=== PATIENT | female | born 1985 | race Caucasian/White ===

== ENCOUNTER 2022-04-10 08:35 | Emergency (ER) | payer OTHER, SELFPAY ==
--- NOTE | 2022-04-10 08:40 | ED.SKABFB ---
HPI - Skin/Abscess/Foreign Bdy General Chief complaint: Upper Respiratory Infection Stated complaint: sore throat infection right big toe Time Seen by Provider: 04/10/22 08:40 Source: patient and RN notes reviewed History of Present Illness HPI narrative: The patient is a 36-year-old female who presents to urgent care with complaints of a possible infection to her right toe as well as a sore throat. Patient states that she wore a high heel shoes this past week that rubbed her toe open. Patient has been using peroxide, salt water and Neosporin on the toe. Also reports of a sore throat for 1 week. Patient has not taken anything [id number] for the sore throat. 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 Denies any known fevers, nausea or vomiting. No other acute complaints. No acute distress noted. Patient aware of the plan of care. Some parts of this dictation were generated by voice recognition software and may contain typographical and/or grammatical inaccuracies. Related Data Home Medications Medication Instructions Recorded Confirmed dextroamphetamine-amphetamine 10 10 mg PO BID 04/10/22 04/10/22 mg tablet Allergies Allergy/AdvReac Type Severity Reaction Status Date / Time No Known Allergies Allergy Verified 04/10/22 08:53 Review of Systems Review of Systems: CONSTITUTIONAL: Denies fever, chills, or sweats. EYES: Denies visual changes, redness, or discharge. ENT: Denies rhinorrhea, congestion, Otalgia. Reports a sore throat CARDIOVASCULAR: Denies chest pain, palpitations, or edema. RESPIRATORY: Denies cough or dyspnea. GASTROINTESTINAL: Denies abdominal pain, nausea, vomiting, or diarrhea. GENITOURINARY: Denies dysuria or hematuria. SKIN: reports of redness and pain around the right toe MUSCULOSKELETAL: Denies back pain, joint pain, or myalgia. NEUROLOGIC: Denies headache, numbness, or weakness. All other systems reviewed are negative, except as documented in HPI. [facility] Family History Family History (Updated 01/06/16 @ 23:21 by DOCTOR UNKNOWN) Mother Depression Patient's mother is in good health Hypertension Sibling Asthma Patient's sister is in good health Patient's brother is in good health Family history of development disorder Family history of attention deficit hyperactivity disorder (ADHD) Other Family history of malignant neoplasm of breast Social History Social History Smoking status: Never smoker Alcohol intake: current Comments At the time of my signature, I reviewed and agree with the nursing past medical, surgical, social, and family history. There is no relevant family history pertinent to the patient complaint. Exam Narrative: GENERAL: This is a well-nourished, well-developed patient, in no apparent distress. HEAD: normocephalic, atraumatic. EYES: PERRL. Sclera clear/white. Vision is grossly intact. EARS: External ears normal, auditory canals clear and without drainage, TMs normal without perforation. Hearing grossly intact. NOSE: External nose normal with no obvious nasal discharge, nares without redness, no rhinorrhea. THROAT: Mucous membranes moist, mild erythema noted to posterior oropharynx without exudate or ulceration. Absent tonsils. NECK: Neck supple, non-tender Mild right submandibular lymphadenopathy CARDIOVASCULAR: Regular rate and rhythm without murmurs, gallops, or rubs. RESPIRATORY: Clear to auscultation. Breath sounds equal bilaterally. No wheezes, rales, or rhonchi. SKIN: 1 x 1 cm none deep ulceration to the cuticle of the right great toe with mild surrounding erythema.warm, intact with no suspicious lesions or rash, good texture and turgor. NEURO: awake, alert, and oriented to person, place and time. There were no obvious focal neurologic abnormalities. EXTREMITIES: No clubbing, cyanosis, or edema. positive strong right pedal pulse with capillary refill less than 2 seconds. Course Course Level of Care: E
[2022-04-10 08:42] VITALS: BP 116/70; PULSE 84; RESP 14; TEMP 36.3; O2SAT 100
== END 2022-04-10 09:20 | disposition home or self-care (01) ==
PROVIDERS: Emergency Provider Nurse Practitioner Family; PCP Nurse Practitioner Family
DX: J02.0 Streptococcal pharyngitis (principal); S91.109A Unspecified open wound of unspecified toe(s) without damage to nail, initial encounter; X58.XXXA Exposure to other specified factors, initial encounter
CPT/HCPCS: 87880; 99213; G0463

== ENCOUNTER 2022-04-26 | Emergency (ER) | payer OTHER, SELFPAY ==
--- NOTE | ~2022-04-26 | CT_ITS ---
EXAMINATION: CT abdomen pelvis wo con DATE: 04/26/2022 00:36 INDICATION: Hematuria. Dysuria. TECHNIQUE: Computed tomography (CT) of the abdomen and pelvis was performed without intravenous contr ast. Automated exposure control and iterative reconstruction technique were employed. The dose-length product was 191.01 mGy-cm. COMPARISON: CT abdomen 06/23/2004 FINDINGS: The visualized portions of the lung bases are clear without pneumonia or pleural effusion. The heart size is normal. No pericardial effusion. The liver, gallbladder, spleen, pancreas, adrenal glands, and kidneys are normal. There is no urolithiasis. There are no dilated loops of bowel. The ap pendix is normal. There are no pathologically enlarged lymph nodes. There is no free intraperitoneal fluid. There is mild thoracic spondylosis. IMPRESSION: 1. No etiology for the patient's symptoms. Reviewed, dictated and finalized at location A. INE STRIPER
[2022-04-26 00:08] VITALS: BP 137/81; PULSE 89; RESP 20; TEMP 36.9; O2SAT 100
[2022-04-26 00:23] LABS: Appearance Urine Slightly Cloudy (Clear); Bilirubin Urine Negative (Negative); Blood Urine 3+ (Negative); Glucose Urine UA Negative (Negative); Ketones Urine Negative (Negative); Leukocyte Esterase Ur 2+ (Negative); Nitrate Urine Negative (Negative); Protein Urine Negative (Negative); Specific Grav Ur <= 1.005 (1.010-1.020); Urobilinogen Urine 0.2 mg/dL (0.2-1.0)
[2022-04-26] MEDS: KETOROLAC 30 MG/ML VIAL (*BKC) IM (00:23)
[2022-04-26 00:29] LABS: Add Urine Microscopic? YES; Color Urine Yellow (Yellow)
[2022-04-26 00:30] LABS: Bacteria Urine Trace /hpf; Squamous Epithelial Cell Urine Rare /hpf (Few); WBC Urine 16-20 /hpf (0-3)
--- NOTE | 2022-04-26 00:44 | ED.ABDPAIN ---
HPI - Abdominal Pain General Chief Complaint: Urogenital-Female Stated Complaint: UTI Time Seen by Provider: 04/26/22 00:04 Source: patient and RN notes reviewed Mode of arrival: ambulatory Limitations: no limitations History of Present Illness MD elicited complaint: abdominal pain Pertinent past history: past UTI Onset (ago): day(s) (2) Pain Consistency: constant Location: suprapubic Severity: moderate Pain scale (0-10): 6 Quality: cramping and aching Radiation: none Migration to: no migration Exacerbating factors: nothing Relieving factors: nothing Associated symptoms: dysuria and hematuria Related Data Patient : No Home Medications Medication Instructions Recorded Confirmed dextroamphetamine-amphetamine 10 10 mg PO BID 04/10/22 04/26/22 mg tablet Allergies Allergy/AdvReac Type Severity Reaction Status Date / Time No Known Allergies Allergy Verified 04/10/22 08:53 Review of Systems Review of Systems: All systems reviewed & are unremarkable except as noted in HPI and below Constitutional: Constitutional: Reports no additional constitutional complaints Eyes: Eyes: Reports no additional eye complaints ENT: Reports system reviewed and no additional complaints, except as documented Cardiovascular: Cardiovascular: Reports no additional cardiovascular complaints Respiratory: Respiratory: Reports no additional respiratory complaints Gastrointestinal: Gastrointestinal: Reports abdominal pain and Reports nausea Genitourinary: Genitourinary: Reports no additional female genitourinary complaints Musculoskeletal: Musculoskeletal: Reports no additional musculoskeletal complaints Integumentary/Breasts: Skin/Breast: Reports system reviewed and no additional complaints, except as docu Neurologic: Reports system reviewed and no additional complaints, except as documented Psychiatric: Psychiatric: Reports no additional psychiatric complaints Endocrine: Endocrine: Reports no additional endocrine complaints Hematologic/Lymphatic: Hematologic/Lymphatic: Reports no additional hematologic/lymphatic complaints Allergic/Immunologic: Allergic/Immunologic: Reports no additional allergic/immunologic complaints [facility] Past Medical History Medical History UTI (urinary tract infection) Family History Family History Mother Depression Patient's mother is in good health Hypertension Sibling Asthma Patient's sister is in good health Patient's brother is in good health Family history of development disorder Family history of attention deficit hyperactivity disorder (ADHD) Other Family history of malignant neoplasm of breast Social History Social History Smoking status: Never smoker Alcohol intake: current Exam Const: General: healthy appearing, no acute distress and well nourished Nutritional Appearance: well nourished Orientation/consciousness: patient oriented x3 Limitations: no limitations HENMT: Head: normal to inspection Ears: external ears normal, TM's normal bilaterally and EAC's normal Face/Nose/Sinus: Normal external nose present, Normal nares present, normal facial exam and sinuses nontender Face and sinus: normal facial exam and sinuses nontender Mouth: Yes Normal oral and palatal mucosa present and Yes moist mucous membranes Teeth and gingiva: dentition normal Throat: posterior oropharynx normal Eyes: Conjunctivae: conjunctivae normal Pupils: Equal, round and reactive pupils present EOM: EOMs intact bilaterally Neck: Neck: normal visual inspection, no lymphadenopathy and no meningeal signs Chest: Chest palpation & inspection: normal inspection of the chest Resp: Effort & Inspection: normal respiratory effort Auscultation: clear to auscultation bilaterally Cardio: Rate: regular rate Rhythm: regular
[2022-04-26] MEDS: cefTRIAXone 1 GM, LIDOCAINE HCL 1% LOCAL INJ 2.1 ML IM (00:58)
[2022-04-26 01:13] VITALS: BP 118/85; PULSE 76; RESP 18; TEMP 37; O2SAT 100
== END 2022-04-26 01:24 | disposition home or self-care (01) ==
PROVIDERS: Emergency Provider Emergency Medicine; PCP Nurse Practitioner Family
DX: N39.0 Urinary tract infection, site not specified (principal)
CPT/HCPCS: 74176; 81001; 96372; 99284; J0696; J1885

== ENCOUNTER 2022-05-02 18:22 | Emergency (ER) | payer OTHER, SELFPAY ==
[2022-05-02 18:49] VITALS: BP 108/66; PULSE 71; RESP 20; TEMP 36.3; O2SAT 100
--- NOTE | 2022-05-02 20:25 | ED.SKABFB ---
HPI - Skin/Abscess/Foreign Bdy General Chief complaint: Skin/Abscess/Foreign Body Stated complaint: Mouth Sore Time Seen by Provider: 05/02/22 20:25 Source: patient, RN notes reviewed and old records reviewed Mode of arrival: ambulatory Limitations: no limitations History of Present Illness HPI narrative: 36 year old female who presents to [facility] care with complaints of swelling under the right side of her tongue and also under her right jaw line which is tender and firm feeling. Patient reports that she has discomfort when she moves her tongue. Patient reports that she was treated 2 weeks ago for strep throat and then 2 days later also had infected toe and on the she received Bactrim for UTI.Patient reports no shortness of breath or any difficulty with her swallowing. Patient reports these symptoms started yesterday. MD complaint: other (swollen firm gland under right jaw line) Onset (ago): day(s) (day 2 of symptoms) Severity scale (1-10): 5 Treatments prior to arrival: none Related Data Home Medications Medication Instructions Recorded Confirmed dextroamphetamine-amphetamine 10 10 mg PO BID 04/10/22 05/02/22 mg tablet Allergies Allergy/AdvReac Type Severity Reaction Status Date / Time No Known Allergies Allergy Verified 05/02/22 19:43 Review of Systems Review of Systems: CONSTITUTIONAL: Denies fever, chills, or sweats. EYES: Denies visual changes, redness, or discharge. ENT: Denies rhinorrhea, congestion, sore throat, or otalgia..positive for raised area under right tongue and firm area under right jaw line CARDIOVASCULAR: Denies chest pain, palpitations, or edema. RESPIRATORY: Denies cough or dyspnea. GASTROINTESTINAL: Denies abdominal pain, nausea, vomiting, or diarrhea. GENITOURINARY: Denies dysuria or hematuria. SKIN: Denies rash or itching. MUSCULOSKELETAL: Denies back pain, joint pain, or myalgia. NEUROLOGIC: Reports some headache, no numbness, or weakness. PSYCHIATRIC: Denies anxiety or depression. All systems reviewed & are unremarkable except as noted in HPI and below PMFSH Past Medical History Medical History ADHD (attention deficit hyperactivity disorder) Asthma GERD (gastroesophageal reflux disease) UTI (urinary tract infection) Family History Family History Mother Depression Patient's mother is in good health Hypertension Sibling Asthma Patient's sister is in good health Patient's brother is in good health Family history of development disorder Family history of attention deficit hyperactivity disorder (ADHD) Other Family history of malignant neoplasm of breast Social History Social History Smoking status: Never smoker Alcohol intake: current Comments At time of signature, agree with nursing past medical, surgical, social and family history. There is no relevant family history pertinent to the presenting complaint Exam Narrative: GENERAL: Well-appearing, well-nourished, and in no acute distress. HEAD: Normocephalic, atraumatic. EYES: PERRLA and EOMI. ENT: Nares clear, no rhinorrhea or epistaxis. Mucous membranes moist.TM's normal throat pink with no swelling noted, raised area under right tongue with firm tender under right jawline. NECK: Supple. firm area under right jawline CHEST: Clear to auscultation. No respiratory distress.SAO2 100% on room air HEART: Regular rate and rhythm. No murmur heard. Normal peripheral pulses. ABDOMEN: Soft, nontender, nondistended, normal active bowel sounds. EXTREMITIES: Normal range of motion. No edema. SKIN: Warm, dry, no rash.key NEURO: No focal deficits. Alert and oriented x3. Course Course Emergency Course: Patient is aware of diagnosis, understands and agrees to treatment plan.? Anticipatory guidance given.? Patient agrees to follow-up as directed and is aware o
== END 2022-05-02 20:45 | disposition home or self-care (01) ==
PROVIDERS: Emergency Provider Registered Nurse; PCP Nurse Practitioner Family
DX: K11.20 Sialoadenitis, unspecified (principal)
CPT/HCPCS: 99213; G0463

== ENCOUNTER 2022-05-28 17:09 | Emergency (ER) | payer OTHER, SELFPAY ==
[2022-05-28 17:21] VITALS: BP 110/74; PULSE 89; RESP 16; TEMP 36.6; O2SAT 100
--- NOTE | 2022-05-28 17:28 | ED.URI ---
HPI - URI/Sore Throat General Chief Complaint: Upper Respiratory Infection Stated Complaint: sore throat, fever Time Seen by Provider: 05/28/22 18:10 Source: patient and RN notes reviewed Mode of arrival: ambulatory Limitations: no limitations History of Present Illness HPI Narrative: 36-year-old female presents concern for sore throat, fatigue, fever, earache. Reports symptoms started yesterday. Reports exposure to strep throat. Her children have similar symptoms. MD elicited complaint: fever and sore throat Related Data Home Medications Medication Instructions Recorded Confirmed dextroamphetamine-amphetamine 10 10 mg PO DAILY 05/28/22 05/28/22 mg tablet Allergies Allergy/AdvReac Type Severity Reaction Status Date / Time No Known Allergies Allergy Verified 05/28/22 17:48 Review of Systems Review of Systems: CONSTITUTIONAL: Reports malaise, fatigue, fever. EYES: Denies visual changes, redness, or discharge. ENT: Denies rhinorrhea, congestion, sinus pain. Reports otitis and sore throat. CARDIOVASCULAR: Denies chest pain, palpitations, or edema. RESPIRATORY: Denies cough. Denies dyspnea. GASTROINTESTINAL: Denies abdominal pain, nausea, vomiting, diarrhea SKIN: Denies rash or itching. MUSCULOSKELETAL: Denies myalgia. NEUROLOGIC: Denies headache. All systems reviewed & are unremarkable except as noted in HPI and below PMFSH Past Medical History Medical History ADHD (attention deficit hyperactivity disorder) Asthma GERD (gastroesophageal reflux disease) UTI (urinary tract infection) Family History Family History Mother Depression Patient's mother is in good health Hypertension Sibling Asthma Patient's sister is in good health Patient's brother is in good health Family history of development disorder Family history of attention deficit hyperactivity disorder (ADHD) Other Family history of malignant neoplasm of breast Social History Social History Smoking status: Never smoker Alcohol intake: current Comments At time of signature, agree with nursing past medical, surgical, social and family history. There is no relevant family history pertinent to the presenting complaint Exam Narrative: GENERAL: Well-appearing, well-nourished, and in no acute distress. HEAD: Normocephalic EYES: PERRLA, conjunctivae clear ENT: Nares clear, clear discharge. Mucous membranes moist. TM pearly rosario with dull light reflex bilaterally; no tragal tenderness. Oropharynx erythematous without lesions. Tonsils not enlarged and with exudate, no drooling, no hoarseness, no trismus, uvula midline. NECK: Supple. No lymphadenopathy CHEST: Clear to auscultation, breath sounds equal. No wheezing, rhonchi, rales, or stridor. No respiratory distress, speaks in full sentences. HEART: Regular rate and rhythm. No murmur heard. SKIN: Warm, dry, no rash. NEURO: Alert and oriented x3. PSYCH: Normal mood and affect Course Course Emergency Course: Patient is aware of diagnosis, understands and agrees to treatment plan. Anticipatory guidance given. Patient agrees to follow-up as directed and is aware of reasons to seek care at the emergency department. Portions of this record may have been created with voice recognition software Level of Care: Express Care Visit Vital Signs Vital signs: Vital Signs Temperature 97.8 F 05/28/22 17:21 Pulse Rate 89 05/28/22 17:21 Respiratory Rate 16 05/28/22 17:21 Blood Pressure 110/74 05/28/22 17:21 Pulse Oximetry 100 05/28/22 17:21 Temperature 97.8 F 05/28/22 17:21 Pulse Rate 89 05/28/22 17:21 Respiratory Rate 16 05/28/22 17:21 Blood Pressure 110/74 05/28/22 17:21 Pulse Oximetry 100 05/28/22 17:21 Reviewed. MDM - URI/Sore Throat MDM Narrative Medical decision making narrative
== END 2022-05-28 18:21 | disposition home or self-care (01) ==
PROVIDERS: Emergency Provider Nurse Practitioner
DX: J02.9 Acute pharyngitis, unspecified (principal); Z20.822 Contact with and (suspected) exposure to COVID-19; J45.909 Unspecified asthma, uncomplicated; K21.9 Gastro-esophageal reflux disease without esophagitis; F90.9 Attention-deficit hyperactivity disorder, unspecified type
CPT/HCPCS: 87081; 87426; 87804; 99213; C9803; G0463

== ENCOUNTER 2023-03-13 13:55 | Emergency (ER) | payer OTHER, SELFPAY ==
[2023-03-13 13:59] VITALS: BP 146/93; PULSE 73; RESP 18; TEMP 36.1; O2SAT 100
--- NOTE | 2023-03-13 14:17 | ED.FEMALEGU ---
HPI - Female Genitourinary General Chief complaint: Urogenital-Female Stated complaint: Urinary Problems Source: patient and RN notes reviewed History of Present Illness HPI Narrative: 37-year-old female presents to urgent care with complaints dysuria x3 days. Patient reports urinary frequency, urgency, and burning. Patient states she was having any symptoms 3 weeks ago with resolved after taking Cystex. Denies any fevers, chills, abdominal pain, back pain, flank pain or vomiting. Related Data Allergies Allergy/AdvReac Type Severity Reaction Status Date / Time No Known Allergies Allergy Verified 03/13/23 14:04 Review of Systems Review of Systems: CONSTITUTIONAL: Denies fever, chills, or sweats. EYES: Denies visual changes, redness, or discharge. ENT: Denies otalgia and sore throat CARDIOVASCULAR: Denies chest pain, palpitations, or edema. RESPIRATORY: Denies cough or dyspnea. GASTROINTESTINAL: Denies abdominal pain, nausea, vomiting, or diarrhea. GENITOURINARY: Reports dysuria and hematuria. SKIN: Denies rash or itching. MUSCULOSKELETAL: Denies back pain, joint pain, or myalgia. NEUROLOGIC: Denies headache, numbness, or weakness. Pertinent positives per HPI. PMFSH Past Medical History Medical History ADHD (attention deficit hyperactivity disorder) Asthma GERD (gastroesophageal reflux disease) UTI (urinary tract infection) Family History Family History Mother Depression Patient's mother is in good health Hypertension Sibling Asthma Patient's sister is in good health Patient's brother is in good health Family history of development disorder Family history of attention deficit hyperactivity disorder (ADHD) Other Family history of malignant neoplasm of breast Social History Social History Smoking status: Never smoker Alcohol intake: current Comments At the time of my signature, I reviewed and agree with the nursing past medical, surgical, social, and family history. There is no relevant family history pertinent to the patient complaint. Exam Narrative: GENERAL: This is a well-nourished, well-developed patient, in no apparent distress. HEAD: normocephalic, atraumatic. EYES: Sclera clear/white. Vision is grossly intact. EARS: External ears normal, auditory canals clear and without drainage, TMs normal without perforation. Hearing grossly intact. NOSE: External nose normal with no obvious nasal discharge, nares without redness, no rhinorrhea. THROAT: Mucous membranes moist, posterior pharynx clear. NECK: Neck supple, non-tender without lymphadenopathy, masses or thyromegaly. CARDIOVASCULAR: Regular rate and rhythm without murmurs, gallops, or rubs. RESPIRATORY: Clear to auscultation. Breath sounds equal bilaterally. No wheezes, rales, or rhonchi. GASTROINTESTINAL: Abdomen soft, non-tender, nondistended. Bowel sounds are active. No hepato-splenomegaly, or palpable masses. No guarding. SKIN: warm, intact with no suspicious lesions or rash, good texture and turgor. NEURO: awake, alert, and oriented to person, place and time. There were no obvious focal neurologic abnormalities. EXTREMITIES: No clubbing, cyanosis, or edema. No joint tenderness, effusion, or edema noted. BACK: Nontender without deformity or crepitus. No flank tenderness. Course Course Level of Care: Express Care Visit Vital Signs Vital signs: Vital Signs Temperature 96.9 F L 03/13/23 13:59 Pulse Rate 73 03/13/23 13:59 Respiratory Rate 18 03/13/23 13:59 Blood Pressure 146/93 H 03/13/23 13:59 Pulse Oximetry 100 03/13/23 13:59 Oxygen Delivery Room Air 03/13/23 13:59 Temperature 96.9 F L 03/13/23 13:59 Pulse Rate 73 03/13/23 13:59 Respiratory Rate 18 03/13/23 13:59 Blood Pressure 146/93 H 03/13/23 13:59 Pulse Oximetry 100 1
== END 2023-03-13 14:20 | disposition home or self-care (01) ==
PROVIDERS: Emergency Provider Nurse Practitioner Family
DX: N39.0 Urinary tract infection, site not specified (principal)
CPT/HCPCS: 81003; 87077; 87086; 87088; 99213; G0463

== ENCOUNTER 2023-05-01 11:16 | Emergency (ER) | payer OTHER, SELFPAY ==
[2023-05-01 11:30] VITALS: BP 117/73; PULSE 80; RESP 18; TEMP 36.7; O2SAT 100
--- NOTE | 2023-05-01 11:42 | ED.FEMALEGU ---
HPI - Female Genitourinary General Chief complaint: Urogenital-Female Stated complaint: poss uti Time Seen by Provider: 05/01/23 11:17 Source: patient Mode of arrival: ambulatory Limitations: no limitations History of Present Illness HPI Narrative: Beatrice is a 37-year-old female patient presenting to the clinic today with complaints of a possible UTI. She reports she has pain, frequency, urgency, and bilateral flank pain and lower abdominal discomfort x2 weeks. Free has been taking azo for her symptoms. No fever or chills. Related Data Allergies Allergy/AdvReac Type Severity Reaction Status Date / Time No Known Allergies Allergy Verified 05/01/23 11:24 Review of Systems Review of Systems: Pertinent positives per HPI. Patient denies any fever, chills, rash, headache, visual changes, dizziness, cough, shortness of breath, chest pain, palpitations, nausea, vomiting, diarrhea, constipation, abdominal pain. PMFSH Past Medical History Medical History ADHD (attention deficit hyperactivity disorder) Asthma GERD (gastroesophageal reflux disease) UTI (urinary tract infection) Family History Family History Mother Depression Patient's mother is in good health Hypertension Sibling Asthma Patient's sister is in good health Patient's brother is in good health Family history of development disorder Family history of attention deficit hyperactivity disorder (ADHD) Other Family history of malignant neoplasm of breast Social History Social History Smoking status: Never smoker Alcohol intake: current Comments At the time of my signature, I reviewed and agree with the nursing past medical, surgical, social, and family history. There is no relevant family history pertinent to the patient complaint. Exam Narrative: General: Well-developed, well nourished, in no apparent distress. Head: Normocephalic, atraumatic. Cardio: Regular rate and rhythm, s1 and s2 normal, no murmur appreciated. Resp: Clear to auscultation bilaterally, no rhonchi, rales, wheezing or rubs. Abdomen: Soft, pliable, bowel sounds present in all quadrants, mild tender to palpation over the urinary bladder, no organomegly, no CVAT tenderness. Course Course Emergency Course: Portions of this record may have been created with voice recognition software. Level of Care: Express Care Visit Vital Signs Vital signs: Vital Signs Temperature 36.7 C 05/01/23 11:30 Pulse Rate 80 05/01/23 11:30 Respiratory Rate 18 05/01/23 11:30 Blood Pressure 117/73 05/01/23 11:30 Pulse Oximetry 100 05/01/23 11:30 Temperature 36.7 C 05/01/23 11:30 Pulse Rate 80 05/01/23 11:30 Respiratory Rate 18 05/01/23 11:30 Blood Pressure 117/73 05/01/23 11:30 Pulse Oximetry 100 05/01/23 11:30 Vital signs reviewed MDM - Female Genitourinary MDM Narrative Medical decision making narrative: At the time of visit patient is resting comfortably on the exam table. Patient is nontoxic appearing. UA dip is skewed due to azo. We will send urine for culture. Due to patient's symptoms I will go ahead and empirically treat using Augmentin. Last culture was positive for group B strep. Supportive measures were discussed with the patient she voiced understanding the discharge instructions and agrees to treatment plan. Return precautions were reviewed Differential Diagnosis Differential diagnosis: Likely urinary tract infection and cystitis Lab Data Labs: Urine Glucose Trace Reference Range: Negative Urine Bilirubin 1+ Reference Range: Negative Urine Ketone Negative
== END 2023-05-01 11:50 | disposition home or self-care (01) ==
PROVIDERS: Emergency Provider Nurse Practitioner Family; PCP Nurse Practitioner Family
DX: N30.01 Acute cystitis with hematuria (principal)
CPT/HCPCS: 81003; 87077; 87086; 87186; 99213; G0463

== ENCOUNTER 2024-09-21 11:29 | Outpatient (CLI) | payer BC, SELFPAY ==
[2024-09-21 11:58] LABS: Basophils Absolute Auto 0.03 K/mm3 (0.00-0.10); Basophils Percent Auto 0.5 % (0.0-1.0); Eosinophils Absolute Auto 0.13 K/mm3 (0.02-0.50); Hematocrit 41.9 % (35.0-49.0); Hemoglobin 14.2 g/dL (12.0-15.0); Immature Granulocyte Absolute 0.02 K/mm3 (0.00-0.00); Immature Granulocyte Percent A 0.3 % (0.0-0.0); Lymphocytes Absolute Auto 2.26 K/mm3 (1.10-4.50); Lymphocytes Percent Auto 35.1 % (18.0-42.0); Mean Corpuscular HGB Conc 33.9 g/dL (32-36); Mean Corpuscular Hemoglobin 29.8 pg (27.0-31.0); Mean Platelet Volume 11.5 fl (9.2-11.8); Monocytes Absolute Auto 0.43 K/mm3 (0.10-0.90); Monocytes Percent Auto 6.7 % (2.0-11.0); Neutrophils Absolute Auto 3.57 K/mm3 (1.70-7.20); Neutrophils Percent Auto 55.4 % (50.0-70.0); Platelet Count Result 241 K/mm3 (150-420); Red Blood Count 4.76 M/mm3 (4.20-5.40); Red Cell Distribution Width 12.5 % (11.6-14.4); White Blood Count 6.4 K/mm3 (4.8-10.8)
[2024-09-21 13:02] LABS: Alanine Aminotransferase 27 U/L (14-59); Albumin Level 4.3 g/dL (3.4-5.0); Alkaline Phosphatase 85 U/L (46-116); Anion Gap 9 mmol/L (4-12); Aspartate Amino Transferase 19 U/L (15-37); Bilirubin,Total 0.8 mg/dL (0.00-1.00); Blood Urea Nitrogen 14 mg/dL (7-18); Calcium 9.2 mg/dL (8.5-10.1); Carbon Dioxide 31 mmol/L (21-32); Chloride 106 mmol/L (98-108); Estimated Glomerular Filt Rate > 60; Free T4 Free Thyroxine 0.95 ng/dL (0.76-1.46); Glucose 59 mg/dL (70-99); Iron 138 ug/dL (50-170); Magnesium 1.9 mg/dL (1.8-2.4); Osmolality Calculated 300 mOsm/kg (285-295); Percent Iron Saturation 51 % (12-57); Potassium 3.9 mmol/L (3.5-5.1); Sodium 146 mmol/L (136-145); Thyroid Stimulating Hormone 1.06 uIU/mL (0.36-3.74); Total Protein 7.3 g/dL (6.4-8.2); Vitamin B12 557 pg/mL (193-986)
[2024-09-21 13:04] LABS: Erythrocyte Sedimentation Rate 8 mm/hr (0-15)
--- OUTSIDE RECORDS SUMMARY | 2024-09-21 13:07 | XMS_ITS | Clinical Summary ---
Author Organization [facility] Address [address] [place] [address] Care Team Providers Care Pediatric Assistant Name Role Phone Ruth Murillo MD Primary Care Provider [phone] Source Comments [facility],non-owned Affiliates and Associated Physician Practices is amultiple site organization consisting of ambulatory clinics and hospital sitesin [place], [place] and [place]. This disclosure is being madepursuant to the Care Everywhere program and may not contain all information available regarding this patient. Last updated 18.[facility] Allergies No known active allergies Medications * Be aware that medications may not be up to date on this document. Alwaysverify current medications with the patient. sertraline (ZOLOFT) 50 MG tabletIndication s:Cerebral venous sinus thrombosis (HCC) Take 50 mg by mouth once daily. Active levETIRAcetam (KEPPRA) 500 MG tablet Take 1 Tab by mouth 2 times daily. 60 Tab 5 10/25/2011 Active warfarin (COUMADIN) 5 MG tablet Take 2 Tabs by mouth every evening. Take for total dose of 11 mg every evening. 60 Tab 5 11/01/2011 Active warfarin (COUMADIN) 2 MG tabletIndication s:Cerebral venous sinus thrombosis (HCC) Take 0.5 Tabs by mouth every evening. 30 Tab 5 11/01/2011 Active Ciprofloxacin (CIPRO PO) Take by mouth. Active Active Problems Problem Noted Date Diagnosed Date 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/14/2011 Numbness 09/12/2011 Supervision of high-risk 07/25/2011 Overview (09/04/2011): di-di twins by IVF A+/I/-/-, HIV NR GCT 119 Height: 5' 7 (170.2 cm) Weight: 204 lb 9.6 oz (92.806 kg) Body mass index is 32.04 kg/(m^2). Shoe Size: di-di twins 07/25/2011 Overview (07/25/2011): by IVF labor 07/25/2011 Overview (07/25/2011): Has had contractions since about 24 weeks. Currently on 20mg procardia every 6 hours while awake. Followed by [facility] with serial CL's - last on 07/23, 20-33mm Also bi-weekly FFN's - last neg on 07/16 GERD (gastroesophageal reflux disease) 2 Overview (07/25/2011): 40mg protonix BID Subdural hematoma, acute Medication overuse headache Pre-eclampsia in third trimester Seizure disorder, focal sensory Immunizations Immunization Administration Dates Next Due PNEUMOCOCCAL PPSV23 09/08/2011 TDAP (7yrs+) 09/08/2011 Family History Medical History Relation Name Comments Myasthenia Gravis Brother 2 Multiple Births Mother Ruth Wilcox Labor Mother Ruth Wilcox Twins Mother Ruth Wilcox Relation Name Status Comments Brother 1 Alive Brother 2 Father unknown Other Mother Ruth Wilcox Alive Sister Alive Social History Tobacco Use Types Packs/Day Years Used Date Smoking Tobacco: Never Tobacco Cessation:Counseling Given: Yes Alcohol Use Standard Drinks/Week Comments No 0 (1 standard drink = 0.6 oz pur e alcohol) Comments Unknown Sex and Gender Information Value Date Recorded Sex Assigned at Not on file Legal Sex Female 1:21 PM MANAGER FOOD SAFETY Gender Identity Not on file Sexual Orientation Not on file Last Filed Vital Signs Vital Sign Reading Time Taken Comments Blood Pressure 98/63 01/07/2012 12:13 PM CDT Pulse 64 01/07/2012 12:13 PM CDT Temperature 36.8 C (98.2 F) 01/07/2012 12:13 PM CDT Respiratory Rate 18 01/07/2012 12:1 3 PM CDT Oxygen Saturation 98% 09/17/2011 11: 13 AM CDT Inhaled Oxygen Concentration - - Weight 66.6 kg (146 lb 12.8 oz) 012 12:13 PM CDT Height 170.2 cm (5' 7 ) 01/07/2012 12:1 3 PM CDT Body Mass Index 22.99 01/07/2012 12:13 PM CDT Plan of Treatment Health Maintenance Due Date Last Done Comments PAP SMEAR 1985 HIV SCREENING 2001 HEPATITIS C SCREENING 10/08/2004 HEPATITIS B VACCINE (1 of 3 - 19+ 3-dose series) 2005 DTAP/TDAP/TD VACCINES (2 - T d or Tdap) 09/07/2021 09/08/2011 COVID-19 VACCINE (1 - 2023-2 5 season) 2024 DEPRESSION SCREENING 06/10/2024 INFLUENZA VACCINE (Season Ended) 2025 ZOSTER VACCINE (1 of 2) 2036 PNEUMOCOCCAL VACCINE Aged Out 09/08/2011 No long er eligible based on patient's age to complete this topic HIB VACCINE Aged Out No longer eligi ble based on patient's age to complete this topic HPV VACCINE Aged Out No longer eligi ble based on patient's age to complete this topic MENINGOCOCCAL (Group B) VACC INE SHARED DECISION-MAKING Aged Out No longer eligibl e based on patient's age to complete this topic MENINGOCOCCAL GROUPS A/C/Y/W VACCINE Aged Out No longer eligible b ased on patient's age to complete this topic Insurance [facility] Advance Directives * FULL RESUSCITATION (Latest Code Status on File) Date Activated Date Inactivated Comments 09/03/2011 2:37 PM 09/10/2011 12:48 AM Care Teams Pediatric Assistant Relationship Specialty Start Date End Date Ruth Murillo MD [address] [address] PCP - General 09/12/11
--- OUTSIDE RECORDS SUMMARY | 2024-09-21 13:07 | XMS_ITS | Clinical Summary ---
Author Organization [facility] Address [address] [place] [address] Care Team Providers Care Surgeon Partner Name Role Phone Kasey Hernandez NP Primary Care Provider [phone] Amy Arias NP Unavailable [phone] CatarinoFabby vang MD Unavailable [phone] Allergies No known active allergies Medications methylphenidate HCl (RITALIN) 10 mg tablet Take 1 tablet (10 mg total) by mouth every morning 08/31/2022 Active metroNIDAZOLE (FLAGYL) 500 mg tablet Take 1 tablet (500 mg total) by mouth 2 (two) times a day 09/03/2022 Active Active Problems Problem Noted Date Diagnosed Date Seizure disorder, focal sensory 09/11/2022 Subdural hematoma, acute 09/11/2022 Family history of breast cancer 09/11/2022 Encounter for screening mammogram for breast can cer 09/11/2022 Breast cancer screening, high risk patient 09/11 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/14/2011 GERD (gastroesophageal reflux disease) 2 Overview (09/11/2022): 40mg protonix BID Surgical History Surgery Date Site/Laterality Comments HYSTERECTOMY VASCULAR SURGERY ABDOMINAL SURGERY STAPEDECTOMY Left had surgey done 4 times Medical History Medical History Date Comments Stroke (HCC) Asthma Family History * Patient is adopted Medical History Relation Name Comments Breast cancer Father's Sister Ovarian cancer Father's Sister Thyroid cancer Maternal Grandmother Breast cancer Mother's Sister Breast cancer Paternal Grandmother Relation Name Status Comments Father's Sister Alive Maternal Grandmother Mother's Sister Paternal Grandmother Alive Social History Tobacco Use Types Packs/Day Years Used Date Smoking Tobacco: Never Smokeless Tobacco: Never Alcohol Use Standard Drinks/Week Comments Yes 0 (1 standard drink = 0.6 oz pur e alcohol) Personal Safety Answer Date Recorded Getting School Help Needed Not on file 07/30 Comments No Sex and Gender Information Value Date Recorded Sex Assigned at Not on file 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 Gender Identity Female 10/10/2021 10:25 PM CDT Sexual Orientation Choose not to disclose 2021 10:25 PM CDT Obstetrics History Para Term AB IAB SAB Ectopic Multiple Livin g Live Births 2 2 2 Date Outcome GA Total Labor Labor/2nd/3rd Weight Sex Type Anes PTL Tamar A1 A5 Name Clin Term Term Last Filed Vital Signs Vital Sign Reading Time Taken Comments Blood Pressure 116/77 09/11/2022 9:01 AM CDT Pulse 78 09/11/2022 9:01 AM CDT Temperature 36.5 C (97.7 F) 09/11/2022 9:01 AM CDT Respiratory Rate 20 09/11/2022 9:01 AM CDT Oxygen Saturation 99% 09/11/2022 9:01 AM CDT Inhaled Oxygen Concentration - - Weight 78.5 kg (173 lb) 09/11/2022 9:01 AM CDT Height 172.7 cm (5' 8 ) 09/11/2022 9:01 AM CDT Body Mass Index 26.3 09/11/2022 9:01 AM CDT Plan of Treatment Health Maintenance Due Date Last Done Comments Depression Screening 1986 Hepatitis C Screening 1986 Varicella Vaccines (1 of 2 - 13+ 2-dose series) 10/14/1999 Hepatitis B Screening 2004 Regular Well Visit/Exam 18-64 2004 DTaP/Tdap/Td Vaccine (2 - Td or Tdap) 09/07/2021 09/08/2011 Influenza Vaccine (Season Ended) 2025 04/13/2020, 05/07/2017 Pneumococcal vaccine <65 Aged Out 09/08/2011 No longer eligible based on patient's age to complete this topic HPV Vaccines Aged Out No longer eligi ble based on patient's age to complete this topic Insurance Care Teams Surgeon Partner Relationship Specialty Start Date End Date Kasey Hernandez, ELIZABETH PCP - General 12/03/17 Aym Arias NP [address] [place] [address] Nurse Practitioner Nurse Practitioner 09/04/22 Fabby Toribio MD [address] [facility] MED[facility] ON[facility]OGY, [facility] [place] [address] Surgeon Breast Surgery 09/04/22
--- OUTSIDE RECORDS SUMMARY | 2024-09-21 13:07 | XMS_ITS | Clinical Summary ---
Author Organization [facility] Address [address] [place] [address] Phone Care Team Providers Care Tabulating Supervisor Name Role Phone ANGEL DO MD Unavailable Unavailable Reason for Visit and Chief Complaint The Chief Complaint is: Pt states she has been exposed to covid. C/o chills, fever, chest congestion, SOB, cough, fatigue, headache, body aches, sore throat, and runny nose x 5 days Plan of Treatment - Return to the clinic if condition worsens or new symptoms arise - Last Documented On 05/25/2020 1:08PM ; [facility] - Patient will call for appointment as needed - Last Documented On 05/25/2020 1:08PM ; [facility] CDC handout was given about COVID testing. Informed to quarantine for 10 days from symptom onset. Must have improvement of symptoms and be without fever for 24 hours without medications prior to being released from quarantine. If symptoms worsen or patient develops difficulty breathing go to Emergency Room. Informed the Health Department would contact her in time but if she could to notify her contacts that she was around 48 hours prior to symptom onset until now that she is positive it would be helpful in reducing transmission. - Last Documented On 05/25/2020 1:08PM ; [facility] Assessments Includes: Assessments from this encounter Findings - [Z20.828 - Contact with and (suspected) exposure to other viral communicable diseases] Exposure to a viral disease - Last Documented On 05/25/2020 1:08PM ; [facility] - [U07.1 - COVID-19, virus identified] COVID-19 infection - Last Documented On 05/25/2020 1:08PM ; [facility] - [R05 - Cough] Cough - Last Documented On 05/25/2020 1:08PM ; [facility] Medical Equipment - Implanted Devices Includes: Current Devices No Medical Equipment Recorded Medications Administered Includes: Administered Medications from this encounter No Administered Medications Recorded Vital Signs Includes: Vital Signs from this encounter Vital Name 05/25/2020 12:53P Pulse Rate-Sitting (bpm) 88 Temp-Oral (F) 98.5 Oxygen Saturation (%) 99 Last Documented: On 05/25/2020 12:55P M ; [facility] Results Includes: Results discussed during this encounter Rapid COVID Test [facility] Ordered by YANCY SOTO PMHNP- MEDICAL DIRECTOR/HEAD TEAM PHYSICIAN- on 05/25/2020 Collected: Reported: 05/25/2020 12:57 Last Documented On 0 12:57PM ; [facility] Reviewed on 05/25/2020; All test results are final unless otherwise noted. Rapid COVId positive A (Abnormal) Last Documented On 0 12:57PM ; [facility] Int. QC Acceptable yes N (Normal) Last Documented On 0 12:57PM ; [facility] Lot # and Exp. Date [id number] 08/30/20 N (Normal) Last Documented On 0 12:57PM ; [facility] History of Present Illness Includes: History of Present Illness from this encounter MANDY KENNEDY is a 34 year old female. - Feeling tired - Fever - Chills - Duration of symptoms for 5 days - Previously well - Not feeling poorly (malaise) - Headache associated with head congestion - No sinus pain - No sinus pressure - No swollen glands in the neck - No itching of the eyes - No discharge from the eyes - Nasal discharge - Sore throat - No earache - The ears do not feel pressured - The ears do not feel full - No discharge from the ears - No postnasal drip - No nasal passage blockage (stuffiness) - No sneezing - No hoarseness - No itchy throat - No chest pain or discomfort - No palpitations - Feeling congested in the chest - Dyspnea - Cough - No wheezing - Normal appetite - No nausea - No vomiting - No abdominal pain - No diarrhea - No oliguria - Muscle aches - No bilateral anosmia - No taste decreased - No rash 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 5 days ago mild sore throat then 2 days ago other symptoms started Did not take temp but felt feverish Social History No Social History Recorded - Smoking Status Unknown Procedures and Surgical History Includes: Procedures from this encounter Procedures Code Diagnosis Performing Provider Service L ocation Service Date patient to call if symptoms worsen or not improved in 5-7 days to update patient's status Last Documented On 0 12:57PM ; [facility] Patient verbalizes understanding Last Documented On 0 12:57PM ; [facility] Clinical summary provided to patient Last Documented On 0 12:57PM ; [facility] Medical History Includes: Medical History addressed during this encounter No Medical History Recorded Family History Includes: Family History addressed during this encounter No Family History Recorded Review of Systems Includes: Review of Systems from this encounter No Review of Systems Recorded Mental Status Includes: Mental Status from this encounter Description Oriented to time, place, and person Functional Status Includes: Functional Status from this encounter No Functional Status Recorded Physical Exam Includes: Physical Exam from this encounter Encounters Encounter Provider Location Date Check-In Time Check-Out Time Diagnosis SICK VISIT YANCY SOTO PMHNP-BC MEDICAL DIRECTOR/HEAD TEAM PHYSICIAN-BC [facility] 0 12:45PM 1:05PM Exposure To Contagious Viral Disease,Wallace virus Covid-19 Infection,[place] Cough Insurance Includes: Active Insurance Policies Plan Name Member ID Group # Subscriber Relationship Effect dorene Dates - [facility] [id number] MAG KENNEDY Self Clinical Notes Includes: Clinical Notes from this encounter No Clinical Notes Recorded
--- OUTSIDE RECORDS SUMMARY | 2024-09-21 13:07 | XMS_ITS | Encounter Summary ---
Author Organization [facility] Address [address] [place] [address] Phone Care Team Providers Care Electronic Publications Specialist Name Role Phone Kasey Hernandez NP Primary Care Provider [phone] Amy Arias NP Unavailable [phone] Fabby Toribio MD Unavailable [phone] Encounter Details Date Type Department Care Team (Latest Contact Info) Description 09/11/2022 Orders Only [facility] Scanning, Provider Social History Tobacco Use Types Packs/Day Years Used Date Smoking Tobacco: Never Smokeless Tobacco: Never Alcohol Use Standard Drinks/Week Comments Yes 0 (1 standard drink = 0.6 oz pur e alcohol) Comments No Sex and Gender Information Value Date Recorded Sex Assigned at Not on file 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 Gender Identity Female 10/10/2021 10:25 PM CDT Sexual Orientation Choose not to disclose 2021 10:25 PM CDT documented as of this encounter Plan of Treatment Not on file documented as of this encounter Procedures Procedure Name Priority Date/Time Associated Diagnosis Comments SCAN - LABS 09/11/2022 documented in this encounter Results * SCAN - LABS (09/11/2022) us Provider Scanning Final Result documented in this encounter Visit Diagnoses Not on filedocumented in this encounter Care Teams Electronic Publications Specialist Relationship Specialty Start Date End Date Kasey Hernandez NP PCP - General 12/03/17 Amy Arias, COSMETICS PRESSER [address] [place] [id number] Nurse Practitioner Nurse Practitioner 09/04/22 YoungFabby vang MD [address] [facility] MEDICAL ON[facility]OGY, [facility] [address] [place] [address] Surgeon Breast Surgery 09/04/22 documented as of this encounter
--- OUTSIDE RECORDS SUMMARY | 2024-09-21 13:07 | XMS_ITS ---
Author Organization [facility] Address [address] [place] [address] Phone Care Team Providers Care Electromechanical Engineer Name Role Phone HI REYES, ANGEL Unavailable Unavailable Plan of Treatment Findings Encounter Date Ordered patient will call fo r appointment as needed SICK VISIT with YANCY SOTO PMHNP-BC PHYSICAL DIRECTOR-BC 05/25/2020 Last Documented On 0 1:08PM ; [facility] Ordered return to the clinic if condition worsens or new symptoms arise SICK VISIT with YANCY SOTO PMHNP-BC PHYSICAL DIRECTOR-BC 05/25/2020 Last Documented On 0 1:08PM ; [facility] Assessments Includes: Assessments for all patient encounters Findings Encounter Date Cough SICK VISIT with YANCY ROJAS PMHNP-BC PHYSICAL DIRECTOR-BC 05/25/2020 Last Documented On 0 1:08PM ; [facility] COVID-19 infection SICK VISIT with YANCY MOJICA PMHNP-BC PHYSICAL DIRECTOR-BC 05/25/2020 Last Documented On 0 1:08PM ; [facility] Exposure to a viral disease SICK VISIT w ith YANCY SOTO PMHNP-BC PHYSICAL DIRECTOR-BC 05/25/2020 Last Documented On 0 1:08PM ; [facility] Medical Equipment - Implanted Devices Includes: Current and historical Devices No Medical Equipment Recorded Medications Administered Includes: Administered Medications in patient's chart No Administered Medications Recorded Results Includes: Results from 09/22/2023 through 09/21/2024 No Results Recorded For Specified Dates History of Present Illness History of Present Illness not supported for this document type No History of Present Illness Recorded Social History No Social History Recorded - Smoking Status Unknown Medical History Includes: Medical History in patient's chart No Medical History Recorded Family History Includes: Family History in patient's chart No Family History Recorded Review of Systems Review of Systems not supported for this document type No Review of Systems Recorded Mental Status Description Oriented to time, place, and person Functional Status No Functional Status Recorded Physical Exam Physical Exam not supported for this document type No Physical Exam Recorded Insurance Includes: Active Insurance Policies Plan Name Member ID Group # Subscriber Relationship Effect dorene Dates 1 - [facility] [id number] MAG Martínez Clinical Notes Includes: Signed Clinical Notes starting from 06/29/2022 No Clinical Notes Recorded
--- OUTSIDE RECORDS SUMMARY | 2024-09-21 13:07 | XMS_ITS | Referral Summary ---
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 Gender Identity Female 10/10/2021 10:25 PM CDT Sexual Orientation Choose not to disclose 2021 10:25 PM CDT Last Filed Vital Signs Vital Sign Reading [...] 09/11/2022 9:01 AM CDT Plan of Treatment Not on file Insurance MEDICAID [facility] Care Teams Driver Manager Relationship Specialty Start Date End Date Kasey Hernandez SENIOR SAFETY MANAGEMENT CONSULTANT PCP - General 12/03/17 Amy Arias NP [address] [place] [address] [address] Nurse Practitioner Nurse Practitioner 09/04/22 Fabby Toribio MD [address] [facility] [address] IM MEDICAL ONCOLOGY, [facility] [address] [place] [address] Surgeon Breast Surgery 09/04/22
--- OUTSIDE RECORDS SUMMARY | 2024-09-21 13:08 | XMS_ITS ---
Care Plan - [facility] Created on: September 21, 2024 MAG KENNEDY : 1985 Sex: Female Author Organization [facility] Address [address] [place] [address] Phone Care Team Providers Care Slasher Operator Name Role Phone HI REYES, ANGEL Suresh Unavailable
[2024-09-21 13:29] LABS: Rheumatoid Factor Screen Negative (Negative)
[2024-09-22 17:03] LABS: Vitamin D 25 Hydroxy 31 ng/mL (30-100)
[2024-09-23 06:18] LABS: Total Triiodothyronine (T3) 101 ng/dL (76-181)
[2024-09-23 13:49] LABS: Lyme Disease Ab (IgM), Blot NEGATIVE (NEGATIVE); Lyme Disease Ab(IgG), Blot NEGATIVE (NEGATIVE)
[2024-09-24 15:42] LABS: Insulin Level Total 7.7 uIU/mL
== END 2024-09-21 11:30 | disposition home or self-care (01) ==
LOC: CHSLAB 11:30
PROVIDERS: PCP Nurse Practitioner Family; Visit Provider Nurse Practitioner Family
DX: R53.82 Chronic fatigue, unspecified (principal); M25.50 Pain in unspecified joint; I10 Essential (primary) hypertension; E03.9 Hypothyroidism, unspecified; Z79.899 Other long term (current) drug therapy; E53.8 Deficiency of other specified B group vitamins; E16.2 Hypoglycemia, unspecified
CPT/HCPCS: 36415; 80053; 82306; 82607; 83525; 83527; 83540; 83550; 83735; 84439; 84443; 84480; 85025; 85652; 86038; 86039; 86430; 86617

== ENCOUNTER 2024-09-23 17:46 | Emergency (ER) | payer BC, SELFPAY ==
[2024-09-23 17:47] VITALS: BP 122/95; PULSE 80; RESP 18; TEMP 36.7; O2SAT 100
--- OUTSIDE RECORDS SUMMARY | 2024-09-23 17:48 | XMS_ITS ---
Author Organization [facility] Address [address] [place] [address] Phone Care Team Providers Care Soft Sugar Cutter Name Role Phone HI REYES, ANGEL Unavailable Unavailable Plan of Treatment Findings Encounter Date Ordered patient will call fo r appointment as needed SICK VISIT with YANCY SOTO PMHNP-BC VENDING MACHINE REPAIRER-BC 05/25/2020 Last Documented On 0 1:08PM ; [facility] Ordered return to the clinic if condition worsens or new symptoms arise SICK VISIT with YANCY SOTO PMHNP-BC VENDING MACHINE REPAIRER-BC 05/25/2020 Last Documented On 0 1:08PM ; [facility] Assessments Includes: Assessments for all patient encounters Findings Encounter Date Cough SICK VISIT with YANCY ROJAS PMHNP-BC VENDING MACHINE REPAIRER-BC 05/25/2020 Last Documented On 0 1:08PM ; [facility] COVID-19 infection SICK VISIT with YANCY MOJICA PMHNP-BC VENDING MACHINE REPAIRER-BC 05/25/2020 Last Documented On 0 1:08PM ; [facility] Exposure to a viral disease SICK VISIT w ith YANCY SOTO PMHNP-BC VENDING MACHINE REPAIRER-BC 05/25/2020 Last Documented On 0 1:08PM ; [facility] Medical Equipment - Implanted Devices Includes: Current and historical Devices No Medical Equipment Recorded Medications Administered Includes: Administered Medications in patient's chart No Administered Medications Recorded Results Includes: Results from 09/24/2023 through 09/23/2024 No Results Recorded For Specified Dates History [...] Subscriber Relationship Effect dorene Dates 1 - [facility] [id number] MAG Martínez Clinical Notes Includes: Signed Clinical Notes starting from 06/29/2022 No Clinical Notes Recorded
--- OUTSIDE RECORDS SUMMARY | 2024-09-23 17:48 | XMS_ITS | Encounter Summary ---
Author Organization [facility] Address [address] [place] [address] Phone Care Team Providers Care Casino Dealer Name Role Phone Kasey Hernandez NP Primary Care Provider [phone] Amy Arias NP Unavailable [phone] Fabby Toribio MD Unavailable [phone] Encounter Details Date Type Department Care Team [...] on file Legal Sex Female 8:33 AM FIXTURE MAKER Gender Identity Female 10/10/2021 10:25 PM CDT [...] on filedocumented in this encounter Care Teams Casino Dealer Relationship Specialty Start Date End Date Kasey Hernandez NP PCP - General 12/03/17 Amy Arias, PRIMER CHARGING TOOL SETTER [address] [place] [address] Nurse Practitioner Nurse Practitioner 09/04/22 MowrystownFabby vang MD [address] [facility] MEDICAL ON[facility]OGY, [facility] [address] [place] [address] Surgeon Breast Surgery 09/04/22 documented as of this encounter
--- OUTSIDE RECORDS SUMMARY | 2024-09-23 17:48 | XMS_ITS | Clinical Summary ---
Author Organization [facility] [employer] Address [address] [place] [address] Care Team Providers Care Overlock Sewing Machine Operator Name Role Phone Ruth Murillo MD Primary Care Provider [phone] Source Comments [facility],non-owned Affiliates and Associated Physician Practices is amultiple site organization consisting of ambulatory clinics and hospital sitesin [place], [place], [place] and [place]. This disclosure is being madepursuant to the Care Everywhere program and may not contain all information available regarding this patient. 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 Advance Directives * FULL RESUSCITATION (Latest Code Status on File) Date Activated Date Inactivated Comments 09/03/2011 2:37 PM 09/10/2011 12:48 AM Care Teams Overlock Sewing Machine Operator Relationship Specialty Start Date End Date Ruth Murillo MD [address] [address] PCP - General 09/12/11
--- OUTSIDE RECORDS SUMMARY | 2024-09-23 17:48 | XMS_ITS | Referral Summary ---
Author Organization [facility] Address [address] [place] [address] Care Team Providers Care Director Trust Name Role Phone Kasey Hernandez NP Primary Care Provider [phone] Amy Arias NP Unavailable [phone] Fabby Toribio MD Unavailable [phone] Allergies No known active allergies Medications methylphenidate [...] on file Legal Sex Female 8:33 AM EXPANSION ENVELOPE MAKER HAND Gender Identity Female 10/10/2021 10:25 PM CDT [...] of Treatment Not on file Insurance MEDICAID [facility] Care Teams Director Trust Relationship Specialty Start Date End Date Kasey Hernandez MAINSPRING TORQUE TESTER PCP - General 12/03/17 Amy Arias NP [address] [place] [address] [address] Nurse Practitioner Nurse Practitioner 09/04/22 Fabby Toribio MD [address] [facility] [address] DIV IM MEDICAL ONCOLOGY, [facility] [address] [place] [address] Surgeon Breast Surgery 09/04/22
--- OUTSIDE RECORDS SUMMARY | 2024-09-23 17:48 | XMS_ITS | Clinical Summary ---
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
--- OUTSIDE RECORDS SUMMARY | 2024-09-23 17:49 | XMS_ITS | Clinical Summary ---
Author Organization [facility] Address [address] [place] [address] Phone Care Team Providers Care Sales Clerk Name Role Phone ANGEL DO MD Unavailable [...] - Last Documented On 05/25/2020 1:08PM ; [facility] - Patient will call for appointment as needed - Last Documented On 05/25/2020 1:08PM ; [facility] CDC handout was given about COVID testing. [...] - Last Documented On 05/25/2020 1:08PM ; [facility] Assessments Includes: Assessments from this encounter Findings - [Z20.828 - Contact with and (suspected) exposure to other viral communicable diseases] Exposure to a viral disease - Last Documented On 05/25/2020 1:08PM ; [facility] - [U07.1 - COVID-19, virus identified] COVID-19 infection - Last Documented On 05/25/2020 1:08PM ; [facility] - [R05 - Cough] Cough - Last Documented On 05/25/2020 1:08PM ; [facility] Medical Equipment - Implanted Devices Includes: Current Devices No Medical Equipment Recorded Medications Administered Includes: Administered Medications from this encounter No Administered Medications Recorded Vital Signs Includes: Vital Signs from this encounter Vital Name 05/25/2020 12:53P Pulse Rate-Sitting (bpm) 88 Temp-Oral (F) 98.5 Oxygen Saturation (%) 99 Last Documented: On 05/25/2020 12:55P M ; [facility] Results Includes: Results discussed during this encounter Rapid COVID Test [facility] Ordered by YANCY SOTO PMHNP- EMBROIDERY SUPERVISOR- on 05/25/2020 Collected: Reported: 05/25/2020 12:57 Last Documented On 0 12:57PM ; [facility] Reviewed on 05/25/2020; All test results are final unless otherwise noted. Rapid COVId positive A (Abnormal) Last Documented On 0 12:57PM ; [facility] Int. QC Acceptable yes N (Normal) Last Documented On 0 12:57PM ; [facility] Lot # and Exp. Date [id number] 08/30/20 N (Normal) Last Documented On 0 12:57PM ; [facility] History of Present Illness Includes: History of [...] status Last Documented On 0 12:57PM ; [facility] Patient verbalizes understanding Last Documented On 0 12:57PM ; [facility] Clinical summary provided to patient Last Documented On 0 12:57PM ; [facility] Medical History Includes: Medical History [...] Time Diagnosis SICK VISIT YANCY SOTO PMHNP-BC EMBROIDERY SUPERVISOR-BC [facility] 0 12:45PM 1:05PM Exposure To Contagious Viral Disease,Wallace virus Covid-19 Infection,Acut e Cough Insurance Includes: Active Insurance Policies Plan Name Member ID Group # Subscriber Relationship Effect dorene Dates - [facility] [id number] MAG KENNEDY Self Clinical Notes Includes: Clinical Notes from this encounter No Clinical Notes Recorded
--- OUTSIDE RECORDS SUMMARY | 2024-09-23 17:49 | XMS_ITS ---
Care Plan - [facility] Created on: September 23, 2024 MAG KNENEDY : 1985 Sex: Female Author Organization [facility] Address [address] [place] [address] Phone Care Team Providers Care Profile Shaper Operator Name Role Phone HI REYES, ANGEL Suresh Unavailable
--- NOTE | 2024-09-23 18:00 | ECG_ITS ---
Test Date: 2024-09-23 18:10:15 Measurements Intervals Rosanky Rate: 68 P: 45 ND: 203 QRS: 40 QRSD: 88 T: 61 QT: 411 QTc: 440 Interpretive Statements SINUS RHYTHM BASELINE ARTIFACT- V4-V6 NORMAL ECG No previous ECG available for comparison Electronically Signed On 09-24-2024 09:15:33 CDT by Good Harris D.O.
--- NOTE | 2024-09-23 18:14 | ED_ITS ---
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 She had a workup which revealed hypoglycemia with blood sugar of 59. Patient does not have any history of alcoholism, organ dysfunction or any other medication which could cause hyperglycemia. The patient has modified her diet and is currently eating high- protein diet and avoiding concentrated sweets. In spite of dietary modifications the patient continues to have episodes of hypoglycemia. She has been prescribed doxycycline by primary care physician for Lyme disease. she has been sent from her primary care physician's office to get an EKG to rule out heart block/ arrhythmias. She presents to the ED with -- Vertigo. The patient denies any lightheadedness or dizziness. No ear complaints. Patient is not orthostatic -- ongoing fatigue for the past few weeks. no fever or chills. No dysuria or hematuria. No nausea/vomiting /abdominal pain / diarrhea. Onset (ago): week(s) Severity: moderate Pain Consistency: intermittent Relieving factors: none Exacerbating factors: eating Associated symptoms: denies other symptoms Treatments prior to arrival: none Related Data Home Medications ?Medication ?Instructions ?Recorded ?Confirmed ?Last Taken ?Type dextroamphetamine-amphetamine 10 10 mg PO BID 09/21/24 Unknown History mg tablet (Adderall) Allergies Allergy/AdvReac Type Severity Reaction Status Date / Time No Known Allergies Allergy Verified 09/23/24 18:13 Review of Systems 2 Review of Systems: All systems reviewed & are unremarkable except as noted in HPI and below PMFSH Past Medical History Medical History ADHD (attention deficit hyperactivity disorder) GERD (gastroesophageal reflux disease) Asthma UTI (urinary tract infection) Family History Family History Mother Depression Patient's mother is in good health Hypertension Sibling Asthma Patient's sister is in good health Patient's brother is in good health Family history of development disorder Family history of attention deficit hyperactivity disorder (ADHD) Other Family history of malignant neoplasm of breast Social History Social History Smoking status: Never smoker Alcohol intake: current Alcohol use details: Socially Substance use: current Substance use type: marijuana Last use: nightly Do You Feel Safe in your Home?: Yes Lack of Transportation: No Lack of Food: Never True Current Housing: I Have Housing Concerned About Future Housing: No Difficulty Paying Gas/Electric Bills: No Difficulty Paying for Meds: No Currently Unemployed: No Education: Associate Degree Difficulty w/ Childcare or Family Care: No Living arrangements: with family Exam 2 Narrative: Vitals are stable. Patient is not orthostatic. Const: General: cooperative, healthy appearing and comfortable O rientation/consciousness: oriented to person, oriented to place and oriented to time HENMT: Head: normal to inspection, normocephalic and atraumatic Ears: h earing grossly normal bilaterally, external ears normal and TM's normal bilaterally Face/Nose/Sinus: Normal external nose present and Normal nares present Face and sinus: normal facial exam Mouth: Yes Normal oral and palatal mucosa present, Yes lip normal and Yes tongue normal Teeth and gingiva: dentition normal Throat: posterior oropharynx normal Eyes: General: appearance normal, both eyes and all related structures V isual Dumont: normal visual dumont by confrontation Alignment and Position: a lignment normal and position normal Periorbital: periorbital findings normal Eyelids: eyelids normal Conjunctivae: conjunctivae normal Sclera: s clerae normal Cornea: corneas normal Pupils: Equal, round and reactive pupils present EOM: EOMs intact bilaterally Neck: Neck: normal visual inspection and full ROM Chest: Chest palpation & inspection: normal inspection of the chest Resp: Effort & Inspection: normal respiratory effort Auscultation: clear to auscultation bilaterally Cardio: Palpation: normal PMI Rate: regular rate Rhythm: regular rhythm Heart sounds: S1 normal heart sound present and S2 normal heart sound present GI: Inspection: normal to inspection Other: No tenderness/ rigidity /rebound. Back/Spine/Pelvis: Back: no CVA tenderness Skin: General skin exam: normal color and no rashes or lesions noted Neuro: General: oriented to person, oriented to place, oriented to time, patient oriented x3, gait normal, tone normal and moves all extremities Extrem: General: normal to inspection, full ROM and capillary refill normal Psych: Appearance: grossly normal Mental Status: mental status grossly normal Course Course Emergency Course: Vertigo-- will order Antivert intermittent hypoglycemia-- will check cortisol level, insulin and C-peptide levels. will order glucagon to be used when her blood sugar is less than 60. severe fatigue-- Workup has been negative. The patient is due to get doxycycline for presumed Lyme disease. Patient does not have any evidence of meningitis, bells palsy. No history of ECM. NV interval is noted to be 203 suggestive of first-degree heart block. Vital Signs Vital signs: Vital Signs Temperature 36.7 C 09/23/24 17:47 Pulse Rate 80 09/23/24 17:47 Respiratory Rate 18 09/23/24 17:47 Blood Pressure 122/95 H 09/23/24 17:47 Pulse Oximetry 100 09/23/24 17:47 Oxygen Delivery Room Air 09/23/24 17:47 Temperature 36.7 C 09/23/24 17:47 Pulse Rate 85 09/23/24 18:33 Respiratory Rate 18 09/23/24 17:47 Blood Pressure 129/106 H 09/23/24 18:33 Pulse Oximetry 100 09/23/24 17:47 Oxygen Delivery Room Air 09/23/24 17:47 Medical Decision Making [facility] Narrative Medical decision making narrative: severe fatigue Hypoglycemia Differential Diagnosis Differential Diagnosis: hypothyroidism, connective tissue disorder Medical Records Medical records reviewed: Yes I reviewed the external patient's medical records. Vital Signs Vital Signs: Vital Signs Temperature 36.7 C 09/23/24 17:47 Pulse Rate 80 09/23/24 17:47 Respiratory Rate 18 09/23/24 17:47 Blood Pressure 122/95 H 09/23/24 17:47 Pulse Oximetry 100 09/23/24 17:47 Oxygen Delivery Room Air 09/23/24 17:47 Temperature 36.7 C 09/23/24 17:47 Pulse Rate 85 09/23/24 18:33 Respiratory Rate 18 09/23/24 17:47 Blood Pressure 129/106 H 09/23/24 18:33 Pulse Oximetry 100 09/23/24 17:47 Oxygen Delivery Room Air 09/23/24 17:47 Lab Data 09/23/24 18:47 Labs: Lab Results 04/16/25 Range/Units 18:47 Sodium Pending Potassium Pending Chloride Pending Carbon Dioxide Pending Anion Gap Pending BUN Pending Creatinine Pending Estim Creat Clear Calc Pending Estimated GFR Pending Glucose Pending Total Insulin Pending C-Peptide Pending Calculated Osmolality Pending Calcium Pending Random Cortisol Pending ECG Data EKG #1: ECG completion date: 09/23/24 ECG completion time: 18:10 Interpretation: Normal sinus rhythm normal axis. NV interval is 203 Suggestive of a first- degree heart block. No ST elevation Discharge Plan Discharge Clinical Impression: Chronic fatigue, Reactive hypoglycemia, Vertigo Patient Disposition: Home Condition: Stable Instructions: Antibiotic Form, Non-diabetic Hypoglycemia (ED), Fatigue (ED) Patient Language: Macanese Prescriptions: New meclizine [Antivert] 25 mg tablet,chewable 25 mg PO TID PRN (Reason: motion sickness) Qty: 20 0RF glucagon HCl [Glucagon (HCl) Emergency Kit] 1 mg recon soln 1 mg subcut Q20M PRN (Reason: hypoglycemia) Qty: 1 0RF Rx Instructions: until target blood sugar attained No Action dextroamphetamine-amphetamine [Adderall] 10 mg tablet 10 mg PO BID Rx Instructions: administer doses at least 4-6 hours apart doxycycline monohydrate 100 mg capsule 100 mg PO BID 28 Days Qty: 56 0RF (DME) FreeStyle Anel 3 Sensor Device See Rx Instructions .Route Qty: 1 0RF Rx Instructions: As directed Follow-up/Referrals: Prem Faria DO [Primary Care Provider] - Time of Disposition: 18:57
--- OUTSIDE RECORDS SUMMARY | 2024-09-23 18:25 | XMS_ITS | Referral Summary ---
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
--- OUTSIDE RECORDS SUMMARY | 2024-09-23 18:25 | XMS_ITS ---
Care Plan - [facility] Created on: September 23, 2024 MAG KENNEDY : 1985 Sex: Female Author Organization [facility] Address [address] [place] [address] Phone Care Team Providers Care Marble Cleaner Name Role Phone HI REYES, ANGEL Suresh Unavailable
--- OUTSIDE RECORDS SUMMARY | 2024-09-23 18:25 | XMS_ITS | Clinical Summary ---
Author Organization [facility] Address [address] [place] [address] Phone Care Team Providers Care Director Of Managed Care Name Role Phone ANGEL DO MD Unavailable [...] - Last Documented On 05/25/2020 1:08PM ; [facility] - Patient will call for appointment as needed - Last Documented On 05/25/2020 1:08PM ; [facility] CDC handout was given about COVID [...] - Last Documented On 05/25/2020 1:08PM ; [facility] Assessments Includes: Assessments from this encounter Findings - [Z20.828 - Contact with and (suspected) exposure to other viral communicable diseases] Exposure to a viral disease - Last Documented On 05/25/2020 1:08PM ; [facility] - [U07.1 - COVID-19, virus identified] COVID-19 infection - Last Documented On 05/25/2020 1:08PM ; [facility] - [R05 - Cough] Cough - Last Documented On 05/25/2020 1:08PM ; [facility] Medical Equipment - Implanted Devices Includes: Current Devices No Medical Equipment Recorded Medications Administered Includes: Administered Medications from this encounter No Administered Medications Recorded Vital Signs Includes: Vital Signs from this encounter Vital Name 05/25/2020 12:53P Pulse Rate-Sitting (bpm) 88 Temp-Oral (F) 98.5 Oxygen Saturation (%) 99 Last Documented: On 05/25/2020 12:55P M ; [facility] Results Includes: Results discussed during this encounter Rapid COVID Test [facility] Ordered by YANCY SOTO PMHNP- MEDICAL TRANSCRIPTION RADIOLOGY- on 05/25/2020 Collected: Reported: 05/25/2020 12:57 Last Documented On 0 12:57PM ; [facility] Reviewed on 05/25/2020; All test results are final unless otherwise noted. Rapid COVId positive A (Abnormal) Last Documented On 0 12:57PM ; [facility] Int. QC Acceptable yes N (Normal) Last Documented On 0 12:57PM ; [facility] Lot # and Exp. Date [id number] 08/30/20 N (Normal) Last Documented On 0 12:57PM ; [facility] History of Present Illness Includes: History [...] status Last Documented On 0 12:57PM ; [facility] Patient verbalizes understanding Last Documented On 0 12:57PM ; [facility] Clinical summary provided to patient Last Documented On 0 12:57PM ; [facility] Medical History Includes: Medical History [...] Diagnosis SICK VISIT YANCY SOTO PMHNP-BC MEDICAL TRANSCRIPTION RADIOLOGY-BC [facility] 0 12:45PM 1:05PM Exposure To Contagious Viral Disease,Wallace virus Covid-19 Infection,Acut e Cough Insurance Includes: Active Insurance Policies Plan Name Member ID Group # Subscriber Relationship Effect dorene Dates - [facility] [id number] MAG KENNEDY Self Clinical Notes Includes: Clinical Notes from this encounter No Clinical Notes Recorded
--- OUTSIDE RECORDS SUMMARY | 2024-09-23 18:25 | XMS_ITS | Clinical Summary ---
Author Organization [facility] [employer] [facility] Address [address] [address] Care Team Providers Care Maintenance Mechanic Elevators Name Role Phone Ruth Murillo MD Primary Care Provider [phone] Source Comments [facility],non-owned Affiliates and Associated Physician Practices is amultiple site organization consisting of ambulatory clinics and hospital sitesin [place], [place], [place] and [place]. This disclosure is being madepursuant to the Care Everywhere program and may not contain all information available regarding this patient. 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
--- OUTSIDE RECORDS SUMMARY | 2024-09-23 18:25 | XMS_ITS ---
Author Organization [facility] Address [address] [place] [address] Phone Care Team Providers Care Environmental Safety Specialist Name Role Phone HI REYES, ANGEL Unavailable Unavailable Plan of Treatment Findings Encounter Date Ordered patient will call fo r appointment as needed SICK VISIT with YANCY SOTO PMHNP-BC LOCATOR-BC 05/25/2020 Last Documented On 0 1:08PM ; [facility] Ordered return to the clinic if condition worsens or new symptoms arise SICK VISIT with YANCY SOTO PMHNP-BC LOCATOR-BC 05/25/2020 Last Documented On 0 1:08PM ; [facility] Assessments Includes: Assessments for all patient encounters Findings Encounter Date Cough SICK VISIT with YANCY ROJAS PMHNP-BC LOCATOR-BC 05/25/2020 Last Documented On 0 1:08PM ; [facility] COVID-19 infection SICK VISIT with YANCY MOJICA PMHNP-BC LOCATOR-BC 05/25/2020 Last Documented On 0 1:08PM ; [facility] Exposure to a viral disease SICK VISIT w ith YANCY SOTO PMHNP-BC LOCATOR-BC 05/25/2020 Last Documented On 0 1:08PM ; [facility] Medical Equipment - Implanted Devices Includes: [...] Subscriber Relationship Effect dorene Dates 1 - [facility] [id number] MAG Martínez Clinical Notes Includes: Signed Clinical Notes starting from 06/29/2022 No Clinical Notes Recorded
--- OUTSIDE RECORDS SUMMARY | 2024-09-23 18:25 | XMS_ITS | Encounter Summary ---
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
--- OUTSIDE RECORDS SUMMARY | 2024-09-23 18:25 | XMS_ITS | Clinical Summary ---
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
[2024-09-23 18:33] VITALS: BP 119/89; BP 129/106; PULSE 71; PULSE 85
[2024-09-23 19:00] LABS: Anion Gap 9 mmol/L (4-12); Blood Urea Nitrogen 16 mg/dL (7-18); Calcium 9.3 mg/dL (8.5-10.1); Carbon Dioxide 28 mmol/L (21-32); Chloride 103 mmol/L (98-108); Estimated CRCL calculation 76 ml/min; Estimated Glomerular Filt Rate > 60; Glucose 100 mg/dL (70-99); Osmolality Calculated 291 mOsm/kg (285-295); Potassium 3.9 mmol/L (3.5-5.1); Sodium 140 mmol/L (136-145)
[2024-09-23 19:05] VITALS: BP 116/87; PULSE 71; RESP 18; TEMP 36.6; O2SAT 99
--- NOTE | 2024-09-23 19:09 | PC.NURSE ---
On 09/23/24, the student, [tiffani lopez ], provided care and completed [facility] documentation on this patient. I have reviewed the student's documentation and agree with the findings.
[2024-09-25 13:58] LABS: Insulin Level Total 17.6 uIU/mL
[2024-09-25 16:18] LABS: C-Peptide 3.72 ng/mL (0.80-3.85); Cortisol Random 19.5 mcg/dL
== END 2024-09-23 19:09 | disposition home or self-care (01) ==
PROVIDERS: Emergency Provider Internal Medicine Critical Care Medicine; PCP Family Medicine
DX: R53.83 Other fatigue (principal); E16.1 Other hypoglycemia; R42 Dizziness and giddiness
CPT/HCPCS: 36415; 80048; 82533; 83525; 84681; 93005; 99283

== ENCOUNTER 2024-10-10 07:01 | Outpatient (CLI) | payer BC, SELFPAY ==
--- NOTE | ~2024-10-10 | MR_ITS ---
EXAMINATION: MR brain/brain stem wo con DATE: 10/10/2024 07:37 INDICATION: Headache. Diplopia. Dizziness TECHNIQUE: Magnetic resonance imaging (MRI) of the brain and brainstem was performed without intraven ous contrast. Sequences included sagittal and axial T1-weighted SE, axial diffusion-weighted FS SE, a xial T2*-weighted GRE, axial T2-weighted FLAIR, and axial T2-weighted FSE. Apparent diffusion coeffic ient (ADC) maps were created. COMPARISON: None. FINDINGS: There are no areas of restricted diffusion to suggest acute infarction. No intracranial hemorrhage or abnormal intracranial mass lesion. There are no intraparenchymal signal abnormalities seen on the ot her pulse sequences. The ventricles are symmetric and normal in size. There are no abnormal extra-axi al fluid collections. Flow voids are seen in the cerebral arteries on the T2-weighted sequences consi stent with their expected patency. Visualized orbits and soft tissues are unremarkable. IMPRESSION: 1. Normal brain MR Reviewed, dictated and finalized at location A. IMPRESSION: 1. Normal brain MR
[2024-10-10 07:57] LABS: Hemoglobin A1C 4.9 % (<5.7)
[2024-10-10 08:18] LABS: Cholesterol 152 mg/dL (0-200); HDL Direct 53 mg/dL (40-60); LDL Cholesterol Calculated 73 mg/dL (<130); Triglycerides 132 mg/dL (0-150)
--- OUTSIDE RECORDS SUMMARY | 2024-10-10 15:49 | XMS_ITS | Clinical Summary ---
Author Organization [facility] Address [address] [place] [address] Care Team Providers Care Home Housekeeper Name Role Phone Kasey Hernandez NP Primary Care Provider [phone] Amy Arias NP Unavailable [phone] CatarinoFabby vang MD Unavailable [phone] Allergies No known active allergies Medications methylphenidate [...] disease) 2 Overview (09/11/2022): 40mg protonix BID Encounters Date Type Department Care Team Description 09/24/2024 Telephone [facility] Pulmonology [address] 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
--- OUTSIDE RECORDS SUMMARY | 2024-10-10 15:49 | XMS_ITS | Encounter Summary ---
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
--- OUTSIDE RECORDS SUMMARY | 2024-10-10 15:49 | XMS_ITS | Referral Summary ---
Author Organization [facility] Address 1 [place] [address] Care Team Providers Care Contact Lens Polisher Name Role Phone Kasey Hernandez NP Primary Care Provider [phone] Amy Arias NP Unavailable [phone] Fabby Toribio MD Unavailable [phone] Encounters Date Type Department Care Team Description 09/24/2024 Telephone [facility] Medical Group Pulmonology [address] 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 Gender Identity Female 10/10/2021 10:25 PM [...] Plan of Treatment Not on file Insurance [id number] [place] [address] MEDICAID [facility] Member Subscriber Plan / Payer (Ef fective 2022-Present) Name:Kaylee Terrazas Relation to Subscriber:Self Name:Kaylee Terrazas Payer ID:[id number] (NAIC) Group ID:Not on file Type:MEDICAID RISK OTHER Address: ATTN: CLAIMS DEPT [address] [facility] [place] [phone] Care Teams Contact Lens Polisher Relationship Specialty Start Date End Date Kasey Hernandez NP PCP - General 12/03/17 Amy Arias NP [address] [place] [address] Nurse Practitioner Nurse Practitioner 09/04/22 CatarinoFabby vang MD [address] [facility] [address] DIV IM MEDICAL ONCOLOGY, [facility] [place] [address] Surgeon Breast Surgery 09/04/22
--- OUTSIDE RECORDS SUMMARY | 2024-10-10 15:49 | XMS_ITS | Clinical Summary ---
Author Organization [facility] [employer] Address [address] [place] [address] Care Team Providers Care Hospice Liaison Name Role Phone Ruth Murillo MD Primary Care Provider [phone] Source Comments [facility],non-owned Affiliates and Associated Physician Practices is amultiple site organization consisting of ambulatory clinics and hospital sitesin [place], [place], [place] and [place]. This disclosure is being madepursuant to the Care Everywhere program and may not contain all information available regarding this patient. 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
== END 2024-10-10 07:02 | disposition home or self-care (01) ==
PROVIDERS: PCP Nurse Practitioner Family; Visit Provider Nurse Practitioner Family
DX: Z00.00 Encounter for general adult medical examination without abnormal findings (principal); E16.2 Hypoglycemia, unspecified; R51.9 Headache, unspecified; R42 Dizziness and giddiness; Z86.718 Personal history of other venous thrombosis and embolism
CPT/HCPCS: 36415; 70551; 80061; 83036

== ENCOUNTER 2025-01-30 09:39 | Outpatient (CLI) | payer BC, SELFPAY ==
[2025-01-30 10:08] LABS: Hematocrit 41.1 % (35.0-49.0); Hemoglobin 13.6 g/dL (12.0-15.0); Immature Granulocyte Percent A 0.1 % (0.0-0.0); Lymphocytes Absolute Auto 2.81 K/mm3 (1.10-4.50); Mean Corpuscular HGB Conc 33.1 g/dL (32-36); Mean Corpuscular Hemoglobin 29.4 pg (27.0-31.0); Mean Corpuscular Volume 88.8 fL (78.0-102.0); Nucleated Red Blood Cells Absolute Auto 0.00 K/mm3 (0.00-0.00); Nucleated Red Blood Cells Perc 0.0 % (0-0.0); Platelet Count Result 227 K/mm3 (150-420); Red Blood Count 4.63 M/mm3 (4.20-5.40); White Blood Count 8.0 K/mm3 (4.8-10.8)
[2025-01-30 10:40] LABS: Alanine Aminotransferase 21 U/L (6-35); Albumin Level 4.6 g/dL (3.5-5.1); Alkaline Phosphatase 60 U/L (38-126); Anion Gap 6 mmol/L (4-12); Aspartate Amino Transferase 26 U/L (14-36); Bilirubin,Total 0.6 mg/dL (0.2-1.3); Blood Urea Nitrogen 16 mg/dL (7-17); CRP < 0.5 mg/dL (<1.0); Calcium 9.8 mg/dL (8.4-10.2); Carbon Dioxide 30 mmol/L (22-30); Chloride 103 mmol/L (98-107); Estimated Glomerular Filt Rate > 60; Glucose 105 mg/dL (65-110); Osmolality Calculated 289 mOsm/kg (285-295); Potassium 4.1 mmol/L (3.4-5.0); Sodium 139 mmol/L (137-145); Total Protein 6.8 g/dL (6.3-8.2)
[2025-01-30 11:00] LABS: HIV 1 P24 AG Negative (Negative); HIV 1/2 AB Negative (Negative)
[2025-01-30 11:09] LABS: Thyroid Stimulating Hormone Reflex 2.280 uIU/mL (0.465-4.68)
[2025-01-30 11:13] LABS: Ferritin 140.00 ng/mL (6.24-137)
[2025-01-30 11:44] LABS: Vitamin B12 > 1000.0 pg/mL (239-931)
[2025-02-02 16:07] LABS: ANA by IFA Rfx Titer/Pattern Negative (.)
== END 2025-01-30 09:40 | disposition home or self-care (01) ==
LOC: CHSLAB 09:40
PROVIDERS: PCP Family Medicine; Visit Provider Family Medicine
DX: D50.9 Iron deficiency anemia, unspecified (principal); R53.82 Chronic fatigue, unspecified; E53.8 Deficiency of other specified B group vitamins; E03.9 Hypothyroidism, unspecified
CPT/HCPCS: 36415; 80053; 80074; 82533; 82607; 82728; 82746; 83525; 83527; 84443; 85025; 86038; 86140; 86430; 87806

== ENCOUNTER 2025-02-03 08:35 | Outpatient (CLI) | payer BC, SELFPAY ==
--- NOTE | 2025-02-03 | ECHO_ITS ---
Patient Info Name: Kaylee Terrazas Age: 39 years : 1985 Gender: Female Ht: 67 in Wt: 174 lbs BSA: 1.95 m2 HR: 65 bpm BP: 108 / 80 mmHg Heart Rhythm: Sinus Rhythm Technical Quality: Fair Exam Date: 02/03/2025 9:16 AM Patient Status: O Admit Date: 02/03/2025 Exam Type: CA echo doppler color flow Complete two-dimensional, color flow and Doppler transthoracic echocardiogram is performed. Speech Correction Consultant: Kemi Zurita Summary 1. Complete two-dimensional, color flow and Doppler transthoracic echocardiogram is performed. 2. Left ventricular chamber dimension is normal. 3. Left ventricular systolic function is normal, estimated at 65-70. 4. There is no increased left ventricular wall thickness. 5. The left ventricular diastolic function is normal. 6. Left atrial chamber dimension is mildly enlarged. 7. There is mild mitral valve regurgitation. 8. There is mild tricuspid valve regurgitation. 9. There is mild pulmonic regurgitation. Left Ventricle Left ventricular chamber dimension is normal. Left ventricular systolic function is normal, estimated at 65-70. There is no increased left ventricular wall thickness. The left ventricular diastolic function is normal. Right Ventricle Right ventricular chamber dimension is normal. Right ventricular systolic function is normal. Left Atria Left atrial chamber dimension is mildly enlarged. Right Atria Right atrial chamber dimension is normal. Atrial Septum Intact interatrial septum visualized by color flow imaging. Aortic Valve The aortic valve is trileaflet. There is no aortic valve sclerosis. There is no aortic valve stenosis. There is trace aortic valve regurgitation. Pulmonic Valve The pulmonic valve is normal. There is no pulmonic valve stenosis. There is mild pulmonic regurgitation. Mitral Valve The mitral valve has normal leaflets. There is no mitral valve stenosis. There is mild mitral valve regurgitation. Tricuspid Valve The tricuspid valve leaflets are normal. There is no significant tricuspid valve stenosis. There is mild tricuspid valve regurgitation. No pulmonary hypertension, estimated pulmonary arterial systolic pressure is 28 mmHg. Pericardium/Pleural The pericardium appears normal. There is no pericardial effusion. Inferior Vena Cava Normal inferior vena cava with >50% collapse upon inspiration consistent with normal right atrial pressure, 10 mmHg. Aorta The aortic root size at the sinus of Valsalva is normal. Left Ventricular Outflow Tract Name Value Normal LVOT 2D LVOT Diameter 2.0 cm LVOT Doppler LVOT Peak Velocity 119 cm/s LVOT Peak Gradient 6 mmHg LVOT Mean Gradient 3 mmHg LVOT VTI 24 cm LVOT VTI/AV VTI Ratio 0.8 LVOT Stroke Volume 76 ml LVOT CO 5.0 l/min LVOT CI 2.5 l/min/m2 Pulmonic Valve Name Value Normal RVOT Doppler RVOT Peak Velocity 83 cm/s RVOT Peak Gradient 3 mmHg PV Doppler PV Peak Velocity 93 cm/s PV Peak Gradient 3 mmHg Mitral Valve Name Value Normal MV Diastolic Function MV E Peak Velocity 103 cm/s MV A Peak Velocity 76 cm/s MV E/A 1.4 MV Decel Time (PW) 223 ms MV Annular TDI MV E/e' (Septal) 11.4 MV E/e' (Lateral) 8.6 MV E/e' (Average) 10.0 Tricuspid Valve Name Value Normal TV Regurgitation Doppler TR Peak Velocity 211 cm/s TR Peak Gradient 18 mmHg Estimated PAP/RSVP RA Pressure 10 mmHg <=5 PA Systolic Pressure 28 mmHg <36 RV Systolic Pressure 28 mmHg <36 TV Annular TDI TV Lateral Angelina s' Velocity 12.2 cm/s >=9.5 Aorta Name Value Normal Ascending Aorta Ao Root Diameter (MM) 2.9 cm Ao Root Diam Index (MM) 1.5 cm/m2 Aortic Valve Name Value Normal AV Doppler AV Peak Velocity 132 cm/s AV Peak Gradient 7 mmHg AV Mean Gradient 4 mmHg AV VTI 30 cm AV Area (Cont Eq VTI) 2.5 cm2 >=3.0 AV Area (Cont Eq Gilbert) 2.9 cm2 AV DI (Gilbert) 0.90 AV Regurgitation 2D LVOT Area 3.2 cm2 Ventricles Name Value Normal LV Dimensions 2D/MM IVS Diastolic Thickness (2D) 0.7 cm 0.6-1.0 LVID Diastole (2D) 4.4 cm 3.8-5.2 LVIW Diastolic Thickness (2D) 0.7 cm 0.6-0.9 LVID Systole (2D) 2.9 cm 2.2-3.5 LVOT Diameter 2.0 cm LV Mass (2D Cubed) 86.04 g 67.00-162.00 LV Mass Index (2D Cubed) 44 g/m2 43-95 Relative Wall Thickness (2D) 0.30 <=0.42 LV Fractional Shortening/Ejection Fraction 2D/MM LV Fractional Shortening (2D) 35 % 27-45 LV EF (2D Teichholz) 64 % LV Diastolic Volume (4C MOD) 71 ml LV EF (4C MOD) 65 % LV Diastolic Volume (2C MOD) 73 ml LV EF (2C MOD) 70 % LV Diastolic Volume (BP MOD) 72 ml 46-106 LV Diastolic Volume Index (BP MOD) 37 ml/m2 29-61 LV Systolic Volume (BP MOD) 23 ml 14-42 LV Systolic Volume Index (BP MOD) 12 ml/m2 8-24 LV EF (BP MOD) 68 % 54-74 LV Diastolic Length (4C) 7.8 cm LV Systolic Length (4C) 6.1 cm LV Stroke Volume (4C MOD) 47 ml Atria Name Value Normal LA Dimensions LA Dimension (MM) 3.9 cm 2.7-3.8 LA Volume (4C A-L) 44 ml LA Volume (BP A-L) 41 ml RA Dimensions RA Area (4C) 14.0 cm2 <=18.0 Report Signatures
--- OUTSIDE RECORDS SUMMARY | 2025-02-03 08:42 | XMS_ITS | Clinical Summary ---
Author Organization [facility] Address 1 [place] [address] Care Team Providers Care Herb Doctor Name Role Phone Amy Arias NP Unavailable [phone] CatarinoFabby MD Unavailable [phone] Prem Faria DO Primary Care Provider Allergies No known active allergies Medications methylphenidate [...] Encounters Date Type Department Care Team Description 11/25/2024 10:53 AM CDT - 11/25/2024 11:59 PM CDT Hospital Encounter [facility] [address] [place] [address] Discharge Disposition: Discharge to home or self care from Last 3 Months Surgical History Surgery [...] on file 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 Gender Identity Female 10/10/2021 10:25 PM CDT [...] 9:01 AM CDT Height 172.7 cm (5' 8) 09/11/2022 9:01 AM CDT Body Mass Index 26.3 09/11/2022 9:01 AM CDT Plan of Treatment Health Maintenance Due Date Last Done Comments Depression Screening 1985 Hepatitis C Screening 1985 Varicella Vaccines (1 of 2 - 13+ 2-dose series) 10/14/1999 Hepatitis B Screening 2004 Regular Well Visit/Exam 18-64 2004 HPV Vaccines (1 - 3-dose SCD M series) 2013 DTaP/Tdap/Td Vaccine (2 - Td or Tdap) 09/07/2021 09/08/2011 Influenza Vaccine (#1) 2025 0, 05/07/2017 Pneumococcal vaccine <65 Aged Out 09/08/2011 No longer eligible based on patient's age to complete this topic Procedures Procedure Name Priority Date/Time Associated Diagnosis Comments NEURO MR OUTSIDE REFERENCE Routine 11/25/2024 10:53 AM CDT from Last 3 Months Results * Neuro MR Outside Reference (11/25/2024 10:53 AM CDT) Impressions [facility] - 11/25/2024 10:53 AM CDT These images are for Reference purposes only and have not been reviewed by [facility] Radiology. There will be no report generated by a [facility] Radiologist. Narrative [facility] - 11/25/2024 10:53 AM CDT EXAMINATION: Images For Reference Purposes Only us Chucky Pang MD IMG MRI PROCEDURES Final Re sult [facility] from Last 3 Months Insurance [facility] MEDICAID [employer] [place] [facility] Care Teams Herb Doctor Relationship Specialty Start Date End Date Prem Faria DO [address] [place] [address] PCP - General Family Medicine 12/04/24 Amy Arias NP [address] [place] [address] [facility] [address] [place] [address] Nurse Practitioner Nurse Practitioner 09/04/22 Fabby Toribio MD [address] [facility] [address] DIV IM MEDICAL ONCOLOGY, [facility] [address] [place] [address] Surgeon Breast Surgery 09/04/22
--- OUTSIDE RECORDS SUMMARY | 2025-02-03 08:42 | XMS_ITS | Clinical Summary ---
Author Organization [facility] Address [address] [place] [address] Care Team Providers Care Cafeteria Assistant Name Role Phone Ruth Murillo MD Primary Care Provider [phone] Source Comments [facility],non-owned Affiliates and Associated Physician Practices is amultiple site organization consisting of ambulatory clinics and hospital sitesin [place], [place], [place] and [place]. This disclosure is being madepursuant to the Care Everywhere program and may not contain all information available regarding this patient. Last updated 18.[facility] Allergies No known active allergies Medications * [...] every 6 hours while awake. 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 Gender Identity Not on file Sexual Orientation [...] 12:13 PM CDT Height 170.2 cm (5' 7) 01/07/2012 12:1 3 PM CDT Body Mass Index 22.99 01/07/2012 12:13 PM CDT Plan of Treatment Health Maintenance Due Date Last Done Comments HIV SCREENING 2001 HEPATITIS C SCREENING 10/08/2004 HEPATITIS B VACCINE (1 of 3 - 19+ 3-dose series) 2005 PAP SMEAR 10/14/2007 HPV VACCINE (1 - 3-dose SCDM series) 2013 DTAP/TDAP/TD VACCINES (2 - T d or Tdap) 09/07/2021 09/08/2011 COVID-19 VACCINE (1 - 2023-2 5 season) 2024 DEPRESSION SCREENING 06/10/2024 INFLUENZA VACCINE (#1) 2025 ZOSTER VACCINE (1 of 2) 2036 [...] patient's age to complete this topic Insurance [facility] Advance Directives * FULL RESUSCITATION (Latest Code Status on File) Date Activated Date Inactivated Comments 09/03/2011 2:37 PM 09/10/2011 12:48 AM Care Teams Cafeteria Assistant Relationship Specialty Start Date End Date Ruth Murillo MD [address] [address] PCP - General 09/12/11
--- OUTSIDE RECORDS SUMMARY | 2025-02-03 08:42 | XMS_ITS | Encounter Summary ---
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 Gender Identity Female 10/10/2021 10:25 PM CDT [...] on filedocumented in this encounter Care Teams Metal Sprayer Machined Parts Relationship Specialty Start Date End Date Kasey Hernandez, INSPECTOR ADVANCED COMPOSITE PCP - General 12/03/17 12/03/24 Prem Faria DO [address] [place] [address] PCP - General Family Medicine 12/04/24 Amy Arias, ELIZABETH [address] [place] [address] Nurse Practitioner Nurse Practitioner 09/04/22 Fabby Toribio MD [address] [facility] [address] DIV MEDICAL ONCOLOGY, [facility] [address] [place] [address] Surgeon Breast Surgery 09/04/22 documented as of this encounter
== END 2025-02-03 08:36 | disposition home or self-care (01) ==
PROVIDERS: PCP Family Medicine
DX: I08.3 Combined rheumatic disorders of mitral, aortic and tricuspid valves (principal); R53.83 Other fatigue
CPT/HCPCS: 93306

== ENCOUNTER 2025-02-17 09:23 | Outpatient (CLI) | payer BC, SELFPAY ==
--- NOTE | 2025-02-17 09:36 | EST_ITS ---
Patient Info Name: Kaylee Terrazas Age: 39 years : 1985 Gender: Female Ht: 67 in Wt: 175 lbs BSA: 1.95 m2 HR: 67 bpm BP: 105 / 83 mmHg Exam Date: 02/17/2025 9:36 AM Patient Status: O Admit Date: 02/17/2025 Exam Type: CA stress test treadmill A treadmill exercise stress test was performed. Staff Referring Physician: Prem Faria Attending Provider: Prem Faria Exercise Technologist: Kemi Zurita Exercise Physician: Good Harris DO Summary 1. 1. Negative Jem exercise stress test for ischemic ST changes by ECG criteria. 2. 2. Reduced functional capacity, achieving 10 METs of workload. 3. 3. Appropriate HR response to exercise. 4. 4. Appropriate HR recovery at 1 minute post exercise. 5. 5. No imaging with stress testing. 6. 6. Patient informed of the above results. Protocol: Jem Stress ECG Details Stage: REST Duration (min): 1 min : 9 sec Speed (mph): 0.0 Grade (%): 0 HR (bpm): 69 SBP (mmHg): 105 DBP (mmHg): 83 METS: --- Stage: REST Duration (min): 6 min : 33 sec Speed (mph): 0.0 Grade (%): 0 HR (bpm): 73 SBP (mmHg): 105 DBP (mmHg): 83 METS: --- Stage: STAGE 1 Duration (min): 1 min : 0 sec Speed (mph): 1.7 Grade (%): 10 HR (bpm): 97 SBP (mmHg): 105 DBP (mmHg): 83 METS: --- Stage: STAGE 1 Duration (min): 2 min : 0 sec Speed (mph): 1.7 Grade (%): 10 HR (bpm): 113 SBP (mmHg): 105 DBP (mmHg): 83 METS: --- Stage: STAGE 1 Duration (min): 3 min : 0 sec Speed (mph): 1.7 Grade (%): 10 HR (bpm): 122 SBP (mmHg): 139 DBP (mmHg): 74 METS: --- Stage: STAGE 2 Duration (min): 1 min : 0 sec Speed (mph): 2.5 Grade (%): 12 HR (bpm): 132 SBP (mmHg): 139 DBP (mmHg): 74 METS: --- Stage: STAGE 2 Duration (min): 2 min : 0 sec Speed (mph): 2.5 Grade (%): 12 HR (bpm): 139 SBP (mmHg): 160 DBP (mmHg): 78 METS: --- Stage: STAGE 2 Duration (min): 3 min : 0 sec Speed (mph): 2.5 Grade (%): 12 HR (bpm): 143 SBP (mmHg): 160 DBP (mmHg): 78 METS: --- Stage: STAGE 3 Duration (min): 1 min : 0 sec Speed (mph): 3.4 Grade (%): 14 HR (bpm): 149 SBP (mmHg): 131 DBP (mmHg): 81 METS: --- Stage: STAGE 3 Duration (min): 1 min : 51 sec Speed (mph): 3.4 Grade (%): 14 HR (bpm): 155 SBP (mmHg): 131 DBP (mmHg): 81 METS: --- Stage: RECOVERY Duration (min): 0 min : 8 sec Speed (mph): 1.5 Grade (%): 0 HR (bpm): 156 SBP (mmHg): 131 DBP (mmHg): 81 METS: --- Stage: RECOVERY Duration (min): 1 min : 8 sec Speed (mph): 0.0 Grade (%): 0 HR (bpm): 123 SBP (mmHg): 131 DBP (mmHg): 81 METS: --- Stage: RECOVERY Duration (min): 2 min : 8 sec Speed (mph): 0.0 Grade (%): 0 HR (bpm): 103 SBP (mmHg): 131 DBP (mmHg): 81 METS: --- Stage: RECOVERY Duration (min): 3 min : 1 sec Speed (mph): 0.0 Grade (%): 0 HR (bpm): 85 SBP (mmHg): 149 DBP (mmHg): 88 METS: --- Rest HR: 73 bpm Peak HR: 156 bpm Rest Sys BP: 105 mmHg Peak Sys BP: 160 mmHg Max Pred HR: 182 bpm % Max Pred HR: 86 % Target HR: 155 bpm Max RPP: 24,960 bpm*mmHg Joseph Score: 5 Termination Reason: Reached target heart rate or workload Cardiac Symptoms: Shortness of breath Max ST Seg Deviation: 0.50 mm Total Time: 7 min : 51 sec Rest Parikh BP: 83 mmHg Peak Parikh BP: 78 mmHg Angina Score: None Total METS: 10.3 Resting ECG Sinus rhythm. Stress ECG No ST changes. Arrhythmias None. Report Signatures
--- OUTSIDE RECORDS SUMMARY | 2025-02-17 10:07 | XMS_ITS | Clinical Summary ---
Author Organization [facility] Address [address] [place] [address] Care Team Providers Care Construction Economist Name Role Phone Ruth Murillo MD Primary Care Provider [phone] Source Comments [facility],non-owned Affiliates and Associated Physician Practices is amultiple site organization consisting of ambulatory clinics and hospital sitesin [place], [place], [place] and [place]. This disclosure is being madepursuant to the Care Everywhere program and may not contain all information available regarding this patient. 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 Gender Identity Not on file Sexual Orientation [...] - T d or Tdap) 09/07/2021 09/08/2011 DEPRESSION SCREENING 06/10/2024 COVID-19 VACCINE (1 - 2023-2 5 season) 2025 INFLUENZA VACCINE (#1) 2025 ZOSTER VACCINE (1 [...] patient's age to complete this topic Insurance [facility] Advance Directives * FULL RESUSCITATION (Latest Code Status on File) Date Activated Date Inactivated Comments 09/03/2011 2:37 PM 09/10/2011 12:48 AM Care Teams Construction Economist Relationship Specialty Start Date End Date Ruth Murillo MD [address] [address] PCP - General 09/12/11
--- OUTSIDE RECORDS SUMMARY | 2025-02-17 10:08 | XMS_ITS | Encounter Summary ---
Author Organization [facility] Address [address] [place] [address] Phone Care Team Providers Care Diagnostic Technologist Name Role Phone Amy Arias NP Unavailable [phone] Fabby Toribio MD Unavailable [phone] Prem Faria DO Primary Care Provider Encounter Details Date Type Department Care Team (Late st Contact Info) Description 02/17/2025 Telephone [facility] Medicine Scheduling [facility] [place] [address] Cookie Ac BS Social History Tobacco Use Types Packs/Day Years Used Date Smoking Tobacco: Never Smokeless Tobacco: Never Alcohol Use Standard Drinks/Week Comments Yes 0 (1 standard drink = 0.6 oz pur e alcohol) Comments No Sex and Gender Information Value Date Recorded Sex Assigned at Not on file 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 Gender Identity Female 10/10/2021 10:25 PM CDT Sexual Orientation Choose not to disclose 2021 10:25 PM CDT documented as of this encounter Miscellaneous Notes * Telephone Encounter - Cookie Ac BS - 02/17/2025 9:04 AM CDT lvm to confirm Oct IOV - jdc 02/17 documented in this encounter Plan of Treatment Not on file documented as of this encounter Visit Diagnoses Not on filedocumented in this encounter Care Teams Diagnostic Technologist Relationship Specialty Start Date End Date Prem Faria DO [address] [place] [address] PCP - General Family Medicine 12/04/24 Amy Arias, ELIZABETH [address] [place] [address] Nurse Practitioner Nurse Practitioner 09/04/22 Fabby Toribio MD [address] [facility], [facility] [place] [address] Surgeon Breast Surgery 09/04/22 documented as of this encounter
--- OUTSIDE RECORDS SUMMARY | 2025-02-17 10:08 | XMS_ITS | Clinical Summary ---
Author Organization [facility] Address [address] [place] [address] Care Team Providers Care Agency Service Representative Name Role Phone Amy Arias NP Unavailable [phone] CatarinoFabby MD Unavailable [phone] Prem Faria DO Primary Care Provider Allergies [...] Encounters Date Type Department Care Team Description 02/17/2025 Telephone [facility] Medicine Scheduling [address] [place], [place] [id number] Cookie Ac BS 11/25/2024 10:53 AM CDT - 11/25/2024 11:59 PM CDT Hospital Encounter [facility] [address] [place] [address] Discharge Disposition: Discharge to home or self [...] on file 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 There will be no report generated by a [facility] Radiologist. Narrative [facility] - 11/25/2024 10:53 AM CDT EXAMINATION: Images For Reference Purposes Only us Chucky Pang MD IMG MRI PROCEDURES Final Re sult [facility] from Last 3 Months Insurance [facility] [place] Care Teams Agency Service Representative Relationship Specialty Start Date End Date Prem Faria DO [address] [place] [address] PCP - General Family Medicine 12/04/24 Amy Arias NP [address] [place] [address] [address] Nurse Practitioner Nurse Practitioner 09/04/22 Fabby Toribio MD [address] [facility] [address] DIV IM MEDICAL ONCOLOGY, [facility] [place] [address] Surgeon Breast Surgery 09/04/22
--- OUTSIDE RECORDS SUMMARY | 2025-02-17 10:08 | XMS_ITS | Encounter Summary ---
Author Organization 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 Gender Identity Female 10/10/2021 10:25 PM CDT [...] on filedocumented in this encounter Care Teams Surveillance Monitor Relationship Specialty Start Date End Date Kasey Hernandez, HOSPICE MUSIC THERAPY PCP - General 12/03/17 12/03/24 Prem Faria DO [address] [place] [address] PCP - General Family Medicine 12/04/24 Amy Arias, ELIZABETH [address] [place] [address] Nurse Practitioner Nurse Practitioner 09/04/22 Fabby Toribio MD [address] [facility] [address] DIV MEDICAL ONCOLOGY, [facility] [address] [place] [address] Surgeon Breast Surgery 09/04/22 documented as of this encounter
== END 2025-02-17 09:24 | disposition home or self-care (01) ==
PROVIDERS: PCP Family Medicine; Visit Provider Family Medicine
DX: R68.89 Other general symptoms and signs (principal); R53.82 Chronic fatigue, unspecified
CPT/HCPCS: 93017